=== PATIENT | male | born 1960 | race Caucasian/White ===

== ENCOUNTER 2017-08-19 03:49 | Emergency (ER) | payer MEDICAID ==
[2017-08-19 03:55] VITALS: RESP 18
[2017-08-19] MEDS ORDERED: SODIUM CHLORIDE 0.9% 1,000 ML IV STA (04:01)
[2017-08-19] MEDS ORDERED: ONDANSETRON 4 MG/2 ML VIAL IVP STA (04:01)
[2017-08-19] MEDS ORDERED: KETOROLAC 30 MG/ML 1 ML VIAL IVP STA (04:01)
--- NOTE | 2017-08-19 04:06 | ED ---
General Adult HPI - General Chief complaint: Abdominal Pain Stated complaint: kidney stone Time Seen by Provider: 08/19/17 03:50 Source: patient, RN notes reviewed Mode of arrival: ambulatory Limitations: no limitations - History of Present Illness Initial comments: This a 56-year-old male who presents emergency Department with a past medical history significant for kidney stones. Patient comes in today stating he believes he has another kidney stone. Patient states the pain is the left lower quadrant radiates down into his testicle. Patient denies any swelling of the testicle patient denies any tenderness to palpating the testicle. Patient denies any abdominal tenderness to palpation. Patient denies any fever chills per patient states he was nauseated earlier but did not vomit. Patient denies any diarrhea. Patient denies any dysuria hematuria. Patient states she's having a difficult time urinating at the present time. Patient denies any chest pain difficulty breathing [place] of breath. - Related Data Previous Rx's Medication Instructions Recorded Hydrocodone/Acetaminophen [Davison 1 each PO Q4HR PRN #20 tab 08/19/17 5-325] Ketorolac [Toradol] 10 mg PO Q6HR #15 tab 08/19/17 Tamsulosin HCl [Flomax] 0.4 mg PO DAILY #7 cap 08/19/17 Allergies Allergy/AdvReac Type Severity Reaction Status Date / Time No Known Allergies Allergy Verified 08/19/17 03:55 Review of Systems ROS Statement: Those systems with pertinent positive or pertinent negative responses have been documented in the HPI. ROS Other: All systems not noted in ROS Statement are negative. Past Medical History Past Medical History: Cancer Additional Past Medical History / Comment(s): HX BASAL CELL SKIN CA, KIDNEY STONES History of Any Multi-Drug Resistant Organisms: None Reported Additional Past Surgical History / Comment(s): BASAL CELL SKIN LESIONS REMOVED Past Anesthesia/Blood Transfusion Reactions: No Reported Reaction Past Psychological History: No Psychological Hx Reported Smoking Status: Never smoker Past Alcohol Use History: Rare Past Drug Use History: None Reported General Exam - General Exam Comments Initial Comments: GENERAL: Patient is well-developed and well-nourished. Patient is nontoxic and well- hydrated and is in moderate distress. ENT: Neck is soft and supple. No significant lymphadenopathy is noted. Oropharynx is clear. Moist mucous membranes. EYES: The sclera were anicteric and conjunctiva were pink and moist. Extraocular movements were intact and pupils were equal round and reactive to light. Eyelids were unremarkable. PULMONARY: Unlabored respirations. Good breath sounds bilaterally. No audible rales rhonchi or wheezing was noted. CARDIOVASCULAR: There is a regular rate and rhythm without any murmurs gallops or rubs. ABDOMEN: Soft and nontender with normal bowel sounds. No palpable organomegaly was noted. There is no palpable pulsatile mass. SKIN: Skin is clear with no lesions or rashes and otherwise unremarkable. NEUROLOGIC: Patient is alert and oriented x3. Cranial nerves II through XII are grossly intact. Motor and sensory are also intact. Normal speech, volume and content. Symmetrical smile. MUSCULOSKELETAL: Normal extremities with adequate strength and full range of motion. No lower extremity swelling or edema. No calf tenderness. LYMPHATICS: No significant lymphadenopathy is noted PSYCHIATRIC: Normal psychiatric evaluation. Normal interpersonal interactions appears functionally intact in deals appropriately with others. No signs of depression. No signs of anxiety. Limitations: no limitations Course Vital Signs 08/19/17 08/19/17 03:51 05:00 Temperature 98.2 F 98.5 F Pulse Rate 63 74 Respiratory 18 18 Rate Blood Pressure 120/82 111/61 O2 Sat by Pulse 99 98 Oximetry Medical Decision Making - Medical Decision Making CT [place] 4 mm stone on the left UVJ - Lab Data Result diagrams: 08/19/17 04:09 08/19/17 04:09 Lab Results 08/19/17 08/19/17 08/19/17 Range/Units 04:09 04:09 05:00 WBC 6.6 (3.8-10.6) k/uL RBC 5.19 (4.30-5.90) m/uL Hgb 14.6 (13.0-17.5) gm/dL Hct 42.6 (39.0-53.0) % MCV 82.1 (80.0-100.0) fL MCH 28.1 (25.0-35.0) pg MCHC 34.2 (31.0-37.0) g/dL RDW 14.1 (11.5-15.5) % Plt Count 208 (150-450) k/uL Neutrophils % 53 % Lymphocytes % 36 % Monocytes % 5 % Eosinophils % 3 % Basophils % 0 % Neutrophils # 3.5 (1.3-7.7) k/uL Lymphocytes # 2.4 (1.0-4.8) k/uL Monocytes # 0.4 (0-1.0) k/uL Eosinophils # 0.2 (0-0.7) k/uL Basophils # 0.0 (0-0.2) k/uL Sodium 141 (137-145) mmol/L Potassium 4.1 (3.5-5.1) mmol/L Chloride 104 (98-107) mmol/L Carbon Dioxide 27 (22-30) mmol/L Anion Gap 10 mmol/L BUN 18 (9-20) mg/dL Creatinine 1.50 H (0.66-1.25) mg/dL Est GFR (MDRD) Af Amer 58 (>60 ml/min/1.73 sqM) Est GFR (MDRD) Non-Af 48 (>60 ml/min/1.73 sqM) Glucose 129 H (74-99) mg/dL Calcium 9.6 (8.4-10.2) mg/dL Total Bilirubin 0.5 (0.2-1.3) mg/dL AST 26 (17-59) U/L ALT 42 (21-72) U/L Alkaline Phosphatase 41 (38-126) U/L Total Protein 6.4 (6.3-8.2) g/dL Albumin 3.9 (3.5-5.0) g/dL Amylase 61 (30-110) U/L Lipase 147 (23-300) U/L Urine Color Yellow Urine Appearance Clear (Clear) Urine pH 5.0 (5.0-8.0) Ur Specific [place] 1.025 (1.001-1.035) Urine Protein Trace H (Negative) Urine Glucose (UA) Negative (Negative) Urine Ketones 1+ H (Negative) Urine Blood Small H (Negative) Urine Nitrite Negative (Negative) Urine Bilirubin Negative (Negative) Urine Urobilinogen <2.0 (<2.0) mg/dL Ur Leukocyte Esterase Negative (Negative) Urine RBC 18 H (0-5) /hpf Urine WBC 1 (0-5) /hpf Ur Squamous Epith Cells <1 (0-4) /hpf Urine Mucus Many H (None) /hpf Disposition Clinical Impression: Kidney stone on left side Disposition: HOME SELF-CARE Condition: Good Prescriptions: Hydrocodone/Acetaminophen [Davison 5-325] 1 each PO Q4HR PRN #20 tab PRN Reason: Pain Ketorolac [Toradol] 10 mg PO Q6HR #15 tab Tamsulosin HCl [Flomax] 0.4 mg PO DAILY #7 cap Referrals: None,Stated [Primary Care Provider] - 1-2 days Time of Disposition: 05:27
[2017-08-19 04:22] LABS: Basophils % (A) 0 %; Eosinophils # (A) 0.2 k/uL (0-0.7); Eosinophils % (A) 3 %; HCT 42.6 % (39.0-53.0); HGB 14.6 gm/dL (13.0-17.5); Lymphocytes # (A) 2.4 k/uL (1.0-4.8); Lymphocytes % (A) 36 %; MCH 28.1 pg (25.0-35.0); MCHC 34.2 g/dL (31.0-37.0); MCV 82.1 fL (80.0-100.0); Mean Platelet Volume 7.5; Monocytes # (A) 0.4 k/uL (0-1.0); Monocytes % (A) 5 %; Neutrophils # (A) 3.5 k/uL (1.3-7.7); Neutrophils % (A) 53 %; Platelet Count 208 k/uL (150-450); RBC 5.19 m/uL (4.30-5.90); RDW 14.1 % (11.5-15.5); WBC 6.6 k/uL (3.8-10.6)
[2017-08-19 04:30] LABS: Albumin 3.9 g/dL (3.5-5.0); Calcium 9.6 mg/dL (8.4-10.2); Potassium 4.1 mmol/L (3.5-5.1); Total Bilirubin 0.5 mg/dL (0.2-1.3); Total Protein 6.4 g/dL (6.3-8.2)
--- NOTE | 2017-08-19 04:33 | XR ---
EXAM: XR Abdomen, 1 View CLINICAL HISTORY: Reason: abdominal pain TECHNIQUE: Frontal supine view of the abdomen/pelvis. COMPARISON: CT of the abdomen/pelvis performed the same day. FINDINGS: Gastrointestinal tract: Unremarkable. No dilation. Bones/joints: Unremarkable. IMPRESSION: Normal abdominal x-ray.
--- NOTE | 2017-08-19 05:07 | CT ---
EXAM: CT Abdomen and Pelvis Without Intravenous Contrast CLINICAL HISTORY: Left lower quadrant pain with testicular pain. TECHNIQUE: Axial computed tomography images of the abdomen and pelvis without intravenous contrast. DLP is 1007.40 mGy-cm. This CT exam was performed using one or more of the following dose reduction techniques: automated exposure control, adjustment of the mA and/or kV according to patient size, and/or use of iterative reconstruction technique. COMPARISON: None. FINDINGS: Lower thorax: Minimal bilateral dependent atelectasis. ABDOMEN: Liver: Unremarkable. Gallbladder and bile ducts: Unremarkable. No calcified stones. No ductal dilation. Pancreas: Unremarkable. No ductal dilation. Spleen: Unremarkable. No splenomegaly. Adrenals: Unremarkable. No mass. Kidneys and ureters: There is a 0.4 cm stone at the left UVJ resulting in mild left-sided hydronephrosis with associated perinephric fat stranding. Stomach and bowel: Colonic diverticulosis without evidence of acute diverticulitis. No obstruction. Appendix: No findings to suggest acute appendicitis. PELVIS: Bladder: Unremarkable. No stones. Reproductive: Unremarkable as visualized. ABDOMEN and PELVIS: Intraperitoneal space: Unremarkable. No free air. No significant fluid collection. Bones/joints: No acute fracture. No dislocation. Soft tissues: Small/moderate in size fat-containing umbilical hernia. Tiny fat-containing left inguinal hernia. Vasculature: Unremarkable. No abdominal aortic aneurysm. Lymph nodes: Unremarkable. No enlarged lymph nodes. IMPRESSION: A 0.4 cm stone at the left UVJ resulting in mild left-sided hydronephrosis with associated perinephric fat stranding.
[2017-08-19 05:14] VITALS: BP 111/61; PULSE 74; TEMP 98.5
[2017-08-19 05:20] LABS: Appearance,Urine Clear (Clear); Bilirubin,Urine Negative (Negative); Blood,Urine Small (Negative); Color,Urine Yellow; Glucose,Urine (UA) Negative (Negative); Ketones,Urine 1+ (Negative); Leukocyte Esterase,Urine Negative (Negative); Mucus,Urine Many /hpf; Nitrite,Urine Negative (Negative); Protein,Urine Trace (Negative); RBC,Urine 18 /hpf (0-5); Specific Gravity,Urine 1.025 (1.001-1.035); Squamous Epithelial Cell,Urine <1 /hpf (0-4); Urobilinogen,Urine <2.0 mg/dL (<2.0); WBC,Urine 1 /hpf (0-5)
== END 2017-08-19 05:51 | disposition home or self-care (01) ==
LOC: EC 03:49
DX: N20.0 Calculus of kidney (principal); Z85.828 Personal history of other malignant neoplasm of skin
CPT/HCPCS: 99284; 96374; 96375; 96361; 36415; 80053; 82150; 83690; 85025; 81001; 74018; 74176; J2405; J1885

== ENCOUNTER 2019-05-20 08:29 | Day surgery (SDC) | payer MEDICAID ==
[2019-05-18 10:19] VITALS: BMI 32.5
[~2019-05-20 08:29] MED LIST: DEXAMETHASONE SOD PHOSPHATE 4 MG/ML 1 ML VIAL IV ONE; FAMOTIDINE 20 MG/2 ML VIAL IV ONE; HYDROmorphone 0.5 MG/0.5 ML SYRINGE IVP PRN; LACTATED RINGERS 1,000 ML IV SCH; LIDOCAINE 1% 20 ML VIAL (10MG/ML) FOR IV START INTRADERMA PRN; MIDAZOLAM 2 MG/2 ML VIAL IV PRN; ONDANSETRON 4 MG/2 ML VIAL IVP ONE
[2019-05-20] MEDS: OXYMETAZOLINE 0.05% NASL SPRAY 1 SPRAY BOTTLE NASAL ONE ×4 (09:05→09:25)
[2019-05-20] MEDS ORDERED: DEXAMETHASONE SOD PHOS (MDV) 100 MG/10 ML VIAL IVP ONE (09:17)
[2019-05-20] MEDS ORDERED: ONDANSETRON 4 MG/2 ML VIAL IVP ONE (09:17)
[2019-05-20] MEDS ORDERED: PROPOFOL 10 MG/ML 20 ML VIAL IV ONE (09:56)
[2019-05-20] MEDS ORDERED: fentaNYL (PF) 50 MCG/ML 2 ML AMP ONE (09:56)
[2019-05-20] MEDS ORDERED: LIDOCAINE 1% INJ 10MG/ML (20 ML MDV) ONE (09:56)
[2019-05-20] MEDS ORDERED: MIDAZOLAM 2 MG/2 ML VIAL ONE (09:56)
[2019-05-20] MEDS ORDERED: PHENYLEPHRINE-0.9% NACL SYG 1 MG/10 ML SYRINGE ONE (09:56)
[2019-05-20] MEDS ORDERED: DEXAMETHASONE SOD PHOS (MDV) 100 MG/10 ML VIAL ONE (09:56)
[2019-05-20] MEDS ORDERED: SUCCINYLCHOLINE CHLORIDE VIAL 200 MG/10 ML VIAL IV ONE (09:56)
[2019-05-20] MEDS ORDERED: LIDOCAINE 1%-EPI 1:100,000 20 ML VIAL SQ ONE (10:14)
--- NOTE | 2019-05-20 10:52 | P.OP ---
Date of Procedure: 05/20/19 Preoperative Diagnosis: Deviated nasal septum Inferior turbinate hypertrophy Postoperative Diagnosis: Same Procedure(s) Performed: Septoplasty Outfracture and submucous resection inferior turbinates Anesthesia: DHAVALA Surgeon: Dawson Barrett Estimated Blood Loss (ml): 5 Pathology: other (Nasal septal bone and cartilage) Condition: stable Disposition: PACU Indications for Procedure: This is a 58-year-old white male who has difficulties with chronic left-sided nasal airway obstruction although also some nasal airway obstruction on the right Operative Findings: Nasal septum deviated left with inferior turbinate hypertrophy bilateral Description of Procedure: DESCRIPTION OF PROCEDURE: The patient was brought to the operative suite, placed in the supine position. The patient underwent induction of general anesthesia with oral endotracheal intubation without difficulty. The patient was prepped and draped in the usual aseptic fashion. 1% lidocaine with 1:100,000 epinephrine was infused submucosally on both sides of the nasal septum. While this was taking vasoconstrictive effect, the inferior turbinates were infractured with a Heard elevator. Partial submucous resection of the inferior turbinates was performed with Coblation device ablating a portion of the submucosal soft tissue. The inferior turbinates were then outfractured with a Heard elevator. A left hemitransfixion incision was then made through the mucoperichondrial. Mucoperiosteal flap on the left elevated. Bony cartilaginous junction was disarticulated and mucoperiosteal flap on the right was elevated. Bony nasoseptal deformity were removed with [place] forceps and an inferior cartilaginous strip was removed, leaving a full 1.5 cm caudal strut. Checking intranasally, this corrected the nasal septal deformities and the hemitransfixion incision was closed with running 4-0 chromic suture. The bilateral Jones airway splints coated in bacitracin ointment were placed in the nasal cavities and sutured transseptally with 4-0 nylon suture. The patient was then suctioned in an orogastric fashion. The patient was allowed to emerge from general anesthesia, having tolerated the procedure well and was extubated in the operating suite, transferred to postoperative recovery area in satisfactory condition.
[2019-05-20 11:07] VITALS: TEMP 97.8
[2019-05-20] MEDS ORDERED: HYDROcodone/APAP 5-325MG 1 EACH TAB PO ONE ×3 (13:41→14:06)
[2019-05-20 14:09] LABS: Basophils % (A) 0 %; Eosinophils % (A) 0 %; HCT 47.2 % (39.0-53.0); HGB 16.2 gm/dL (13.0-17.5); Lymphocytes # (A) 0.5 k/uL (1.0-4.8); Lymphocytes % (A) 5 %; MCH 29.6 pg (25.0-35.0); MCHC 34.3 g/dL (31.0-37.0); MCV 86.2 fL (80.0-100.0); Mean Platelet Volume 6.7; Monocytes # (A) 0.1 k/uL (0-1.0); Monocytes % (A) 1 %; Neutrophils # (A) 9.2 k/uL (1.3-7.7); Neutrophils % (A) 93 %; Platelet Count 214 k/uL (150-450); RBC 5.48 m/uL (4.30-5.90); RDW 12.7 % (11.5-15.5); WBC 9.9 k/uL (3.8-10.6)
[2019-05-20 14:26] LABS: Albumin 4.1 g/dL (3.5-5.0); Calcium 9.5 mg/dL (8.4-10.2); Potassium 4.5 mmol/L (3.5-5.1); Total Bilirubin 0.8 mg/dL (0.2-1.3)
[2019-05-20 14:28] VITALS: BP 128/83; PULSE 89; RESP 16
--- NOTE | 2019-05-20 14:34 | P.CRDCN ---
History of Present Illness History of present illness: This is a pleasant 58-year-old male with no significant past medical history who came in for elective septoplasty with Dr. Balbuena. On the plywood patcher was applied in the OR he was noted to be in atrial fibrillation with controlled ventricular rates. For this reason we have been requested to see the patient in the postoperative recovery room. He is seen and examined sitting up in bed with his at the bedside in no acute distress with cause in place on his. He denies any prior history of coronary artery disease, atrial fibrillation, hypertension or dyslipidemia. He denies ever feeling palpitations, dizziness, shortness of breath or fatigue. He states he is quite physically active with no restrictions. There is no old EKG in the system and in fact the patient doesn't follow regularly with her PCP. EKG was obtained and revealed atrial fibrillation with controlled ventricular response heart rate was [address] or T wave abnormalities noted. There is no preoperative labs to review. He takes no daily medications. At the time of my exam: CONSTITUTIONAL: Denies fever. Denies chills. EYES: Denies blurred vision. Denies vision changes. Denies eye pain. EARS, NOSE, MOUTH & THROAT: Denies headache. Denies sore throat. Denies ear pain. CARDIOVASCULAR: Denies chest pain. Denies shortness of breath. Denies orthopnea. Denies PND. Denies palpitations. RESPIRATORY: Denies cough. GASTROINTESTINAL: Denies abdominal pain. Denies diarrhea. Denies constipation. Denies nausea. Denies vomiting. MUSCULOSKELETAL: Denies myalgias. INTEGUMENTARY: Denies pruitis. Denies rash. NEUROLOGIC: Denies numbness. Denies tingling. Denies weakness. PSYCHIATRIC: Denies anxiety. Denies depression. ENDOCRINE: Denies fatigue. Denies weight change. Denies polydipsia. Denies polyurina. GENITOURINARY: Denies burning, hematuria or urgency with micturation. HEMATOLOGIC: Denies history of anemia. Denies bleeding. Blood pressure 120/83 heart rate 89 afebrile maintaining oxygen saturation on room air GENERAL: This is a 58-year-old male in no apparent distress at the time of my examination. HEENT: Head is atraumatic, normocephalic. Pupils are equal, round. Sclerae anicteric. Conjunctivae are clear. Mucous membranes of the mouth are moist. Neck is supple. There is no jugular venous distention. No carotid bruit is heard. LUNGS: Clear to auscultation no wheezes, rales or rhonchi. No chest wall tenderness is noted on palpation or with deep breathing. HEART: Irregular rate and rhythm without murmurs, rubs or gallops. S1 and S2 heard. ABDOMEN: Soft, nontender. Bowel sounds are heard. No organomegaly noted. EXTREMITIES: No evidence of peripheral edema and no calf tenderness noted. VASCULAR: Radial and dorsalis pedis pulses palpated, no evidence of clubbing. NEUROLOGIC: Patient is awake, alert and oriented x3. ASSESSMENT New onset atrial fibrillation with controlled ventricular response. PLAN Atrial fibrillation was noted ON telemetry tracings applied for septoplasty. Patient is maintaining a rate of approximately 70 bpm. He is asymptomatic. Rec ommend obtaining 2-D echocardiogram and Doppler study to assess cardiac structure and function. Will apply 24-hour Holter monitor to assess his ventricular response is as well as if he is going in and out of atrial fibrillation and sinus mechanism. Check electrolytes, TSH and CBC. At this point given the patient's age and no significant risk factors no anticoagulation is currently recommended. We have explained in great detail the risk of blood clot formation to the patient and his . No beta blockers at this time due to controlled rates. Recommend follow-up in the office next week. Thank you kindly for this consultation. Nurse Practitioner note has been reviewed, I agree with a documented findings and plan of care. Patient was seen and examined. Past Medical History Past Medical History: Cancer Additional Past Medical History / Comment(s): HX BASAL CELL SKIN CA, KIDNEY STONES History of Any Multi-Drug Resistant Organisms: None Reported Additional Past Surgical History / Comment(s): surgery as a baby for fontanel closing too soon, basal cell skin lesions removed several times Past Anesthesia/Blood Transfusion Reactions: No Reported Reaction Smoking Status: Never smoker Medications and Allergies Home Medications Medication Instructions Recorded Confirmed Type No Known Home Medications 05/18/19 05/18/19 History Allergies Allergy/AdvReac Type Severity Reaction Status Date / Time No Known Allergies Allergy Verified 05/18/19 10:17 Physical Exam Vitals: Vital Signs Temp Pulse Pulse Resp BP Pulse Ox 05/20/19 12:51 73 16 128/77 97 05/20/19 12:00 90 18 138/70 96 05/20/19 11:33 95 05/20/19 11:28 68 16 141/73 99 05/20/19 11:14 100 16 130/68 4 L 05/20/19 10:58 97.8 F 65 14 156/71 97 05/20/19 09:07 98.7 F 73 18 142/95 97 Intake and Output 05/19/19 05/20/19 05/20/19 22:59 06:59 14:59 Intake Total 1000 Output Total 20 Balance 980 Intake: IV 1000 Output: Estimated Blood Loss 20 Other: Weight 108.862 kg Results 05/20/19 13:51 Current Medications Generic Name Dose Route Start Last Admin Trade Name Freq PRN Reason Stop Dose Admin Hydromorphone HCl 0.5 mg 05/20/19 05:44 Dilaudid IVP 05/21/19 05:45 Q5M PRN Pain Control Lactated Ringer's 1,000 mls @ 20 mls/hr 05/20/19 05:44 05/20/19 09:14 Lactated Ringers IV 950 mls .Q24H ANGELA Administration Lidocaine HCl 0.1 ml 05/20/19 05:44 05/20/19 09:14 .Xylocaine 1% Inj (10mg/Ml) For Iv Start INTRADERMA 0.1 ml PER PROTOCOL PRN Administration IV Start Midazolam HCl 2 mg 05/20/19 05:44 Versed IV 05/21/19 05:45 ONCE PRN Anxiety Intake and Output 05/19/19 05/20/19 05/20/19 22:59 06:59 14:59 Intake Total 1000 Output Total 20 Balance 980 Intake: IV 1000 Output: Estimated Blood Loss 20 Other: Weight 108.862 kg Patient Weight 05/21/19 06:59 Weight 108.862 kg
--- NOTE | 2019-05-21 11:48 | ECHOF ---
Referral Reason:afib MEASUREMENTS -------- HEIGHT: 182.9 cm WEIGHT: 108.9 kg BP: 145/93 RVIDd: 3.5 cm (< 3.3) IVSd: 1.1 cm (0.6 - 1.1) LVIDd: 5.3 cm (3.9 - 5.3) LVPWd: 1.3 cm (0.6 - 1.1) IVSs: 1.6 cm LVIDs: 3.7 cm LVPWs: 1.7 cm LAESV Index (A-L): 31.88 ml/m Ao Diam: 3.3 cm (2.0 - 3.7) AV Cusp: 2.4 cm (1.5 - 2.6) MV EXCURSION: 27.766 mm (> 18.000) MV EF SLOPE: 129 mm/s (70 - 150) EPSS: 0.9 cm RAP: 5.00 mmHg RVSP: 33.58 mmHg FINDINGS -------- Atrial fibrillation. This was a technically good study. The left ventricular size is normal. There is mild concentric left ventricular hypertrophy. Overa ll left ventricular systolic function is mildly impaired with, an EF between 45 - 50 %. The right ventricle is mildly enlarged. LA is midly dilated 29-33ml/m2. The right atrium is normal in size. Interatrial and interventricular septum intact. There is mild aortic valve sclerosis. Mild mitral regurgitation is present. Mild tricuspid regurgitation present. There is borderline pulmonary hypertension. The right ventr icular systolic pressure, as measured by Doppler, is 33.58mmHg. There is no pulmonic regurgitation present. The aortic root size is normal. Normal inferior vena cava with normal inspiratory collapse consistent with estimated right atrial pre ssure of 5 mmHg. There is no pericardial effusion. CONCLUSIONS -------- 1. Atrial fibrillation. 2. This was a technically good study. 3. The left ventricular size is normal. 4. There is mild concentric left ventricular hypertrophy. 5. Overall left ventricular systolic function is mildly impaired with, an EF between 45 - 50 %. 6. The right ventricle is mildly enlarged. 7. LA is midly dilated 29-33ml/m2. 8. The right atrium is normal in size. 9. Interatrial and interventricular septum intact. 10. There is mild aortic valve sclerosis. 11. Mild mitral regurgitation is present. 12. Mild tricuspid regurgitation present. 13. There is borderline pulmonary hypertension. 14. The right ventricular systolic pressure, as measured by Doppler, is 33.58mmHg. 15. There is no pulmonic regurgitation present. 16. The aortic root size is normal. 17. Normal inferior vena cava with normal inspiratory collapse consistent with estimated right atrial pressure of 5 mmHg. 18. There is no pericardial effusion. LAP LAYER: [place] May RDCS
--- NOTE | 2019-05-28 10:25 | EST ---
EXERCISE STRESS 24 HOUR HOLTER REPORT: Patient in his diary did not indicate any symptoms. Predominant rhythm is atrial fib with variable rate that ranged from 58-159 beats per minute with average heart rate of 89 beats per minute. Rare isolated PVCs were noted. There was no evidence of any significant bradyarrhythmia. There was a lot of artifact. FINAL IMPRESSION: Predominant rhythm is atrial fib with variable rate and the average heart rate of 89 beats per minute. No symptoms were reported. Rare isolated premature ventricular contractions were noted. There was no evidence of any significant bradyarrhythmia. MMODL / IJN: [id number] /
== END 2019-05-20 14:52 | disposition home or self-care (01) ==
LOC: OR 08:29
PROVIDERS: ATTEND Otolaryngology
DX: J34.2 Deviated nasal septum (principal); J34.3 Hypertrophy of nasal turbinates; I48.91 Unspecified atrial fibrillation; R94.31 Abnormal electrocardiogram [ECG] [EKG]; I08.3 Combined rheumatic disorders of mitral, aortic and tricuspid valves; R94.39 Abnormal result of other cardiovascular function study; I27.20 Pulmonary hypertension, unspecified; Z85.828 Personal history of other malignant neoplasm of skin; Z87.442 Personal history of urinary calculi
CPT/HCPCS: 30520; 30140; 93225; 93226; 93306; 80053; 84443; 83735; 85025; 88300; J2250; J0330; J2405; J0690; J2001; J3010; J1100; J2370; J2704

== ENCOUNTER → 2019-06-18 | Outpatient (CLI) | payer MEDICAID ==
[2019-06-18 10:54] LABS: Potassium 4.9 mmol/L (3.5-5.1)
[2019-06-18 11:01] LABS: HCT 44.9 % (39.0-53.0); HGB 15.6 gm/dL (13.0-17.5); MCH 29.7 pg (25.0-35.0); MCHC 34.7 g/dL (31.0-37.0); MCV 85.4 fL (80.0-100.0); Mean Platelet Volume 6.6; Platelet Count 226 k/uL (150-450); RBC 5.26 m/uL (4.30-5.90); RDW 12.7 % (11.5-15.5); WBC 5.2 k/uL (3.8-10.6)
== END | disposition home or self-care (01) ==
LOC: LABPAT 10:07
PROVIDERS: ATTEND Internal Medicine Interventional Cardiology
DX: Z01.812 Encounter for preprocedural laboratory examination (principal); I48.0 Paroxysmal atrial fibrillation
CPT/HCPCS: 36415; 80051; 82565; 84520; 85027

== ENCOUNTER → 2019-06-23 | Day surgery (SDC) | payer MEDICAID ==
[2019-06-18 15:10] VITALS: BMI 32.5
[~2019-06-23] MED LIST changes: +BENZOCAINE SPRAY 1 CAN MUCOUS MEM ONE; +DEXAMETHASONE SOD PHOSPHATE 10 MG/ML 1 ML VIAL IV ONE; -DEXAMETHASONE SOD PHOSPHATE 4 MG/ML 1 ML VIAL IV ONE; -FAMOTIDINE 20 MG/2 ML VIAL IV ONE; -HYDROmorphone 0.5 MG/0.5 ML SYRINGE IVP PRN; -MIDAZOLAM 2 MG/2 ML VIAL IV PRN; -ONDANSETRON 4 MG/2 ML VIAL IVP ONE; +PROPOFOL 10 MG/ML 20 ML VIAL IV ONE; +SODIUM CHLORIDE 0.9% 1,000 ML IV SCH; +SODIUM CHLORIDE 0.9% 500 ML 500 ML IV ONE
[2019-06-23 06:50] VITALS: TEMP 98.1
[2019-06-23 08:14] VITALS: RESP 16
--- NOTE | 2019-06-23 09:10 | CE ---
CARDIAC ELECTROPHYSIOLOGY REPORT DATE OF SERVICE: June 23, 2019 PERFORMING PHYSICIAN: Jose F Reich MD. PROCEDURE PERFORMED: Cardioversion of atrial fibrillation. COMPLICATION: None. LEVEL OF SEDATION: The procedure was performed under general anesthesia using propofol. DESCRIPTION OF THE PROCEDURE: After left atrial appendage thrombus was ruled out, we did cardioversion of the patient of from atrial fibrillation to normal sinus mechanism using 300 joule on second attempt. CONCLUSION: Successful cardioversion of atrial fibrillation to normal sinus mechanism using 300 joule on second attempt. MMODL / IJN: [id number] /
--- NOTE | 2019-06-23 09:10 | ECHOT ---
TRANSESOPHAGEAL ECHOCARDIOGRAM DATE OF SERVICE: June 23, 2019 PERFORMING PHYSICIAN: Jose F Reich MD. PROCEDURE PERFORMED: Transesophageal echocardiogram. INDICATION: Rule out intracardiac thrombus before cardioversion. COMPLICATION: None. LEVEL OF SEDATION: Deep sedation was performed using propofol with WAREHOUSE MAN in the room. PROCEDURE DESCRIPTION: After obtaining an informed consent, the patient was brought to the transesophageal echocardiogram suite to recovery room. The patient was turned into left lateral position. The bite guard was placed. Subsequently and after induction of anesthesia, the transesophageal probe was advanced to the mid esophagus where 2D echocardiogram images, color Doppler images, and continuous-wave Doppler images were obtained from the transesophageal and transgastric views. The procedure was completed without any complication. FINDINGS: The left ventricular dimension and systolic function appeared to be within normal limits. The ejection fraction appeared to be in the range of 50%. Right ventricle appeared to be within normal limits for dimension. The left atrium appeared to be mildly dilated and right atrium is moderately dilated. The left atrial appendage appeared to be free from any thrombus. The interatrial septum appeared to be intact. The aortic valve is trileaflet valve without stenosis or regurgitation. The mitral valve seems to be mildly thickened with mild to moderate MR. Normal tricuspid valve and pulmonic valve. CONCLUSION: 1. Normal left atrial appendage without any evidence of thrombus. 2. Intact interatrial septum without any evidence of shunt. 3. Low normal left ventricular systolic function with ejection fraction of 50%. 4. Mild to moderate biatrial enlargement. 5. Trileaflet aortic valve without stenosis or regurgitation. 6. Thickened mitral valve leaflets with mild to moderate mitral regurgitation. 7. Mild tricuspid regurgitation. 8. No evidence of pericardial effusion. MMODL / IJN: [id number] /
[2019-06-23 09:35] VITALS: BP 121/80; PULSE 51
== END ==
LOC: CATHCVL 06:27
PROVIDERS: ATTEND Internal Medicine Interventional Cardiology
DX: I48.0 Paroxysmal atrial fibrillation (principal); I08.1 Rheumatic disorders of both mitral and tricuspid valves; Z85.828 Personal history of other malignant neoplasm of skin
CPT/HCPCS: 93312; 93320; 93325; 92960; J2704; 93005

== ENCOUNTER → 2019-08-11 | Outpatient (CLI) | payer SELFPAY ==
--- NOTE | 2019-08-11 11:58 | CT ---
EXAMINATION TYPE: CT heart w calcium score DATE OF EXAM: 08/11/2019 COMPARISON: None HISTORY: Screening for cardiovascular disorder. 213.9 CT DLP: 118.9 mGycm Automated exposure control for dose reduction was used. CT CALCIUM SCORING Coronary calcium is a marker for plaque (fatty deposits) in a blood vessel or atherosclerosis (harden ing of the arteries). The presence and amount of calcium detected in a coronary artery by the CT sca n, indicates the presence and amount of atherosclerotic plaque. These calcium deposits appear years before the development of heart disease symptoms such as chest pain and shortness of breath. A calcium score is computed for each of the coronary arteries based upon the volume and density of th e calcium deposits. This can be referred to as your calcified plaque burden. It does not correspond directly to the percentage of narrowing in the artery but does correlate with the severity of the un derlying coronary atherosclerosis. PROCEDURE TECHNIQUE - Prospective Gating was used. Slice thickness: 3mm. Density threshold (HU): 130, Pixel threshold: 3, Algorithm: discrete. RESULTS: Incidental note made of ascending aortic borderline aneurysm at 4.1 cm. Small hiatal hernia may be present. Region: LM Calcium Score (Agatston): 0 Volume (mm3): 0 Mass (g): 0 Region: RCA Calcium Score (Agatston): 2.1 Volume (mm3): 6.4 Region: LAD Calcium Score (Agatston): 0 Volume (mm3): 0 Mass (g): 0 Region: CX Calcium Score (Agatston): 0 Volume (mm3): 0 Mass (g): 0 Region: PDA Calcium Score (Agatston): 0 Volume (mm3): 0 Mass (g): 0 Total: Calcium Score (Agatston): 2.1 Volume (mm3): 6.4 TOTAL CALCIUM SCORE: 2.1 IMPRESSION: Calcium Score: 2.1 Implication: Minimal identifiable plaque. Risk of Coronary Artery Disease: Very low, generally less than 5%. Ascending aortic aneurysm is suspected CALCIUM SCORE IMPLICATION RISK OF C ORONARY ARTERY DISEASE 0 No identifiable plaque Very low, generally less than 5% 1-10 Minimal identifiable plaque Very unlikely, less than 10% 11-100 Definite, at least mild atherosclerotic plaque Mild or m inimal coronary narrowings likely 101-400 Definite, at least moderate atherosclerotic plaque Mild coronary ar viry disease highly likely, significant narrowing possible 401 or Higher Extensive atherosclerotic plaque High lik elihood of at least one significant coronary narrowing
== END | disposition home or self-care (01) ==
LOC: RADCTMAIN 08:39
PROVIDERS: ATTEND Internal Medicine Cardiovascular Disease
DX: I10 Essential (primary) hypertension (principal); E78.5 Hyperlipidemia, unspecified
CPT/HCPCS: 75571

== ENCOUNTER → 2020-10-06 | Outpatient (CLI) | payer MEDICAID ==
[2020-10-06 15:22] LABS: HCT 45.1 % (39.6-50.0); MCH 28.8 pg (27.0-32.0); MCHC 33.3 g/dL (32.0-37.0); MCV 86.7 fL (80.0-97.0); Mean Platelet Volume 10.2 fL (9.5-12.2); Platelet Count 212 X 10*3/uL (140-440); RDW 12.2 % (11.5-14.5); WBC 5.52 X 10*3/uL (4.50-10.00)
[2020-10-06 21:54] LABS: African American GFR (CKD) 68.3 (60.0-200.0); Albumin 4.3 g/dL (3.80-4.90); Albumin/Globulin Ratio 2.15 (1.60-3.17); Anion Gap 8.9 mmol/L (4.00-12.00); BUN/Creat Ratio 18.46 Ratio (12.00-20.00); Calcium 9.7 mg/dL (8.7-10.3); Carbon Dioxide 26.1 mmol/L (21.6-31.8); Chol/HDL Ratio 4.81; LDL Cholesterol,Calculated 128.6 mg/dL (0.0-131.0); Non-African American GFR(CKD) 58.9 (60.0-200.0); Potassium 4.9 mmol/L (3.5-5.5); Total Bilirubin 0.8 mg/dL (0.3-1.2); Total Protein 6.3 g/dL (6.2-8.2); VLDL Calculation 35.4 mg/dL (5.00-40.00)
== END | disposition home or self-care (01) ==
LOC: LABWHC1 08:06
PROVIDERS: ATTEND Internal Medicine Clinical Cardiac Electrophysiology
DX: I48.91 Unspecified atrial fibrillation (principal); N18.9 Chronic kidney disease, unspecified
CPT/HCPCS: 36415; 80053; 80061; 83036; 84443; 85027

== ENCOUNTER → 2020-10-20 | Outpatient (CLI) | payer MEDICAID ==
--- NOTE | 2020-10-21 11:00 | ECHOF ---
Referral Reason:I49.91 A fib MEASUREMENTS -------- HEIGHT: 182.9 cm WEIGHT: 108.9 kg BP: RVIDd: 3.6 cm (< 3.3) IVSd: 1.1 cm (0.6 - 1.1) LVIDd: 5.5 cm (3.9 - 5.3) LVPWd: 1.0 cm (0.6 - 1.1) IVSs: 1.6 cm LVIDs: 3.9 cm LVPWs: 1.4 cm LAESV Index (A-L): 41.92 ml/m Ao Diam: 3.1 cm (2.0 - 3.7) AV Cusp: 2.0 cm (1.5 - 2.6) LA Diam: 4.8 cm (2.7 - 3.8) MV EXCURSION: 27.387 mm (> 18.000) MV EF SLOPE: 129 mm/s (70 - 150) EPSS: 0.9 cm RAP: 5.00 mmHg RVSP: 38.73 mmHg FINDINGS -------- Atrial fibrillation. This was a technically adequate study. The left ventricular size is normal. Left ventricular wall thickness is normal. Overall left vent ricular systolic function is low-normal with, an EF between 50 - 55 %. Left ventricular fillimg pre ssure cannot be estimated due to Atrial fibrillation. The right ventricle is mildly enlarged. LA is moderately dilated 34-39 ml/m2 The right atrium is mildly enlarged. Interatrial and interventricular septum intact. The aortic valve is trileaflet and appears structurally normal. There is no evidence of aortic regu rgitation. There is no evidence of aortic stenosis. Mild mitral regurgitation is present. Fxsj-vt-[id number] tricuspid regurgitation present. There is mild pulmonary hypertension. The right ventricular systolic pressure, as measured by Doppler, is 38.73mmHg. There is no pulmonic regurgitation present. The aortic root size is normal. Normal inferior vena cava with normal inspiratory collapse consistent with estimated right atrial pre ssure of 5 mmHg. There is no pericardial effusion. CONCLUSIONS -------- 1. The left ventricular size is normal. 2. Left ventricular wall thickness is normal. 3. Overall left ventricular systolic function is low-normal with, an EF between 50 - 55 %. 4. The right ventricle is mildly enlarged. 5. LA is moderately dilated 34-39 ml/m2 6. The right atrium is mildly enlarged. 7. Mild mitral regurgitation is present. 8. Zuwh-mr-bbxmeklr tricuspid regurgitation present. 9. There is mild pulmonary hypertension. 10. The right ventricular systolic pressure, as measured by Doppler, is 38.73mmHg. ELECTRO MECHANICAL TECHNICIAN: Deandra Snell RDCS
== END | disposition home or self-care (01) ==
LOC: RADECHMAIN 11:40
PROVIDERS: ATTEND Internal Medicine Clinical Cardiac Electrophysiology
DX: I08.1 Rheumatic disorders of both mitral and tricuspid valves (principal); I27.20 Pulmonary hypertension, unspecified
CPT/HCPCS: 93225; 93226; 93306

== ENCOUNTER → 2020-11-08 | Outpatient (CLI) | payer MEDICAID ==
[2020-11-08 09:50] LABS: HCT 43.8 % (39.0-53.0); HGB 15.6 gm/dL (13.0-17.5); MCH 29.7 pg (25.0-35.0); MCHC 35.7 g/dL (31.0-37.0); MCV 83.2 fL (80.0-100.0); Mean Platelet Volume 7.2; Platelet Count 201 k/uL (150-450); RBC 5.26 m/uL (4.30-5.90); RDW 12.4 % (11.5-15.5); WBC 4.8 k/uL (3.8-10.6)
[2020-11-08 10:22] LABS: Potassium 4.6 mmol/L (3.5-5.1)
== END | disposition home or self-care (01) ==
LOC: LABPAT 09:09
PROVIDERS: ATTEND Internal Medicine Clinical Cardiac Electrophysiology
DX: Z01.818 Encounter for other preprocedural examination (principal); I48.19 Other persistent atrial fibrillation
CPT/HCPCS: 80051; 82565; 84520; 85027

== ENCOUNTER 2020-11-17 09:58 | Day surgery (SDC) | payer MEDICAID ==
[2020-11-16 10:29] VITALS: BMI 32.5
[~2020-11-17 09:58] MED LIST changes: -BENZOCAINE SPRAY 1 CAN MUCOUS MEM ONE; -DEXAMETHASONE SOD PHOSPHATE 10 MG/ML 1 ML VIAL IV ONE; -LIDOCAINE 1% 20 ML VIAL (10MG/ML) FOR IV START INTRADERMA PRN; -PROPOFOL 10 MG/ML 20 ML VIAL IV ONE; -SODIUM CHLORIDE 0.9% 500 ML 500 ML IV ONE
[2020-11-17 10:15] VITALS: TEMP 97.8
[2020-11-17] MEDS ORDERED: PROPOFOL 10 MG/ML 20 ML VIAL IV ONE (11:27)
[2020-11-17] MEDS ORDERED: LIDOCAINE 1% INJ 10MG/ML (20 ML MDV) ONE (11:27)
[2020-11-17 12:33] VITALS: PULSE 56; RESP 16
--- NOTE | 2020-11-17 12:36 | P.EPPROC ---
- EP Procedure Note Electrophysiology Procedure Note: Diagnosis Persistent symptom medications atrial fibrillation, failed prior treatment Procedure Electrical cardioversion for atrial fibrillation Postprocedure 12-lead EKG Details Under conscious sedation, 360 J biphasic shock in the AP configuration converted the patient to sinus rhythm Occasional PVCs, heart rate in the 50s Follow-up twelve-lead EKG showed sinus rhythm, mildly prolonged IA interval, narrow QRS abnormal ST segments, heart rates in the 60s Plan Discharge home today Follow up in 2 weeks 24 hour Holter monitor that they If heart rates at rest are in the 70s then I would increase the dose of flecainide to 100 mg twice daily Continue anticoagulation with ELIQUIS
[2020-11-17 12:49] VITALS: BP 110/78
== END 2020-11-17 13:09 | disposition home or self-care (01) ==
LOC: CATHEP 09:58
PROVIDERS: ATTEND Internal Medicine Clinical Cardiac Electrophysiology
DX: I48.19 Other persistent atrial fibrillation (principal); Z20.822 Contact with and (suspected) exposure to COVID-19; Z79.01 Long term (current) use of anticoagulants; Z79.899 Other long term (current) drug therapy
CPT/HCPCS: 92960; 87635; J2001; J2704

== ENCOUNTER → 2021-03-09 | Outpatient (CLI) | payer MEDICAID ==
[2021-03-09 07:20] LABS: HCT 45.2 % (39.0-53.0); HGB 15.6 gm/dL (13.0-17.5); MCH 29.6 pg (25.0-35.0); MCHC 34.4 g/dL (31.0-37.0); MCV 86.1 fL (80.0-100.0); Mean Platelet Volume 7.4; Platelet Count 210 k/uL (150-450); RBC 5.25 m/uL (4.30-5.90); RDW 12.7 % (11.5-15.5); WBC 6.1 k/uL (3.8-10.6)
[2021-03-09 07:31] LABS: Potassium 3.9 mmol/L (3.5-5.1)
== END | disposition home or self-care (01) ==
LOC: LABPAT 07:04
PROVIDERS: ATTEND Internal Medicine Clinical Cardiac Electrophysiology
DX: Z01.812 Encounter for preprocedural laboratory examination (principal); I48.19 Other persistent atrial fibrillation
CPT/HCPCS: 36415; 80051; 82565; 84520; 85027

== ENCOUNTER 2021-03-28 08:15 | Day surgery (SDC) | payer MEDICAID ==
[2021-03-24 16:09] VITALS: BMI 32.5
[2021-03-28] MEDS ORDERED: SODIUM CHLORIDE 0.9% 500 ML 500 ML IV ONE (08:26)
[2021-03-28 08:38] VITALS: RESP 16; TEMP 97.8
[2021-03-28] MEDS ORDERED: PROPOFOL 10 MG/ML 20 ML VIAL IV ONE (09:15)
[2021-03-28] MEDS ORDERED: LIDOCAINE 1% INJ 10MG/ML (20 ML MDV) ONE (09:15)
--- NOTE | 2021-03-28 10:07 | P.EPPROC ---
- EP Procedure Note Electrophysiology Procedure Note: Diagnosis Persistent symptomatic atrial fibrillation Failed flecainide 50 MG twice daily Brought in for electrical cardioversion on a higher dose of flecainide of 100 mg twice daily Procedure 200 J shock converted the patient is sinus rhythm the second attempt after repositioning the anterior patch Patient back in sinus rhythm Twelve-lead EKG shows sinus rhythm mildly prolonged OR interval narrow QRS normal ST segments absent QT interval less than 450 ms QRS width 98 ms OR interval 224 ms Plan Continue anticoagulation with ELIQUIS 5 g twice daily Continue flecainide 75 mg twice daily Proceed with AF ablation with pulmonary vein isolation/linear ablation in the septum
[2021-03-28 13:55] VITALS: BP 132/72; PULSE 60
== END 2021-03-28 10:35 | disposition home or self-care (01) ==
LOC: CATHEP 08:15
PROVIDERS: ATTEND Internal Medicine Clinical Cardiac Electrophysiology
DX: I48.19 Other persistent atrial fibrillation (principal); Z79.01 Long term (current) use of anticoagulants; Z79.899 Other long term (current) drug therapy
CPT/HCPCS: 92960

== ENCOUNTER → 2021-04-24 | Outpatient (CLI) | payer MEDICAID ==
[2021-04-24 09:57] LABS: HCT 42.5 % (39.0-53.0); HGB 14.7 gm/dL (13.0-17.5); MCH 29.6 pg (25.0-35.0); MCHC 34.5 g/dL (31.0-37.0); MCV 85.7 fL (80.0-100.0); Mean Platelet Volume 7.4; Platelet Count 183 k/uL (150-450); RBC 4.96 m/uL (4.30-5.90); RDW 12.2 % (11.5-15.5); WBC 5.3 k/uL (3.8-10.6)
[2021-04-24 10:07] LABS: Potassium 4.6 mmol/L (3.5-5.1)
== END | disposition home or self-care (01) ==
LOC: PAT 08:20
PROVIDERS: ATTEND Internal Medicine Clinical Cardiac Electrophysiology
DX: Z01.812 Encounter for preprocedural laboratory examination (principal); I48.19 Other persistent atrial fibrillation
CPT/HCPCS: 36415; 80051; 82565; 84520; 85027

== ENCOUNTER 2021-04-27 06:38 | Day surgery (SDC) | payer MEDICAID ==
[2021-04-25 13:15] VITALS: BMI 32.5
[~2021-04-27 06:38] MED LIST changes: -LACTATED RINGERS 1,000 ML IV SCH
[2021-04-27] MEDS ORDERED: SUCCINYLCHOLINE CHLORIDE VIAL 200 MG/10 ML VIAL IV ONE (08:42)
[2021-04-27] MEDS ORDERED: LIDOCAINE 1% INJ 10MG/ML (20 ML MDV) ONE ×2 (08:42→09:22)
[2021-04-27] MEDS ORDERED: GLYCOPYRROLATE 0.2 MG/ML 2 ML VIAL ONE (08:42)
[2021-04-27] MEDS ORDERED: fentaNYL (PF) 50 MCG/ML 2 ML AMP ONE (08:42)
[2021-04-27] MEDS ORDERED: PROPOFOL 10 MG/ML 20 ML VIAL IV ONE (08:42)
[2021-04-27] MEDS ORDERED: ISOPROTERENOL 250 MCG/1.25 ML SYR IV ONE (08:42)
[2021-04-27] MEDS ORDERED: ROCURONIUM 10 MG/ML (5 ML VIAL) IV ONE (08:42)
[2021-04-27] MEDS ORDERED: NEOSTIGMINE 1 MG/ML 10 ML VIAL ONE (08:42)
[2021-04-27] MEDS ORDERED: HYDROmorphone (PF) 1 MG/ML ONE (08:42)
[2021-04-27] MEDS ORDERED: HEPARIN SODIUM,PORCINE 10,000 UNIT/ML 1 ML VIAL ONE (08:42)
[2021-04-27] MEDS ORDERED: FUROSEMIDE 10 MG/ML 2 ML VIAL ONE (08:42)
[2021-04-27] MEDS ORDERED: MIDAZOLAM 2 MG/2 ML VIAL ONE (08:42)
[2021-04-27] MEDS ORDERED: HEPARIN SOD,PORK IN 0.45% NACL 25,000 UNIT in 0.45% NACL 1 250ML.BAG IV ONE (09:25)
[2021-04-27] MEDS ORDERED: LIDOCAINE 1% INJ 10MG/ML (20 ML MDV) SQ ONE (09:25)
[2021-04-27] MEDS ORDERED: HEPARIN SODIUM (1,000 UNIT/ML) 1,000 UNIT in SODIUM CHLORIDE 0.9% 1,000 ML IRRIGATION ONE (11:25)
[2021-04-27] MEDS ORDERED: IOPAMIDOL-370 100ML BTL INJ ONE (12:12)
--- NOTE | 2021-04-27 13:19 | P.EPPROC ---
- EP Procedure Note Electrophysiology Procedure Note: This is Dr. Earl dictating an H/P on this patient The patient was interviewed and examined IMPRESSION / ASSESSMENT: Persistent atrial fibrillation, symptomatic tiredness and fatigue This is despite being adequately rate controlled Failed flecainide 50 mg twice daily Shortness of breath with exertion History of cardio myopathy, mild Minimal coronary calcification, calcium score 2.1 Aortic aneurysm, approximately 4.1 cm PLAN: A. fib ablation Continue ELIQUIS HPI Patient was back in A. fib after cardioversion and 50 mg twice daily. He is quite symptomatic tired and fatigued short of breath with exertion Ever the dose was increased 100 mg twice daily and he was admitted once again He is in sinus rhythm He denies any chest discomfort dizziness lightheadedness to undue shortness of breath ROS: No fever chills or rigors, no cough, phlegm or expectoration, no nausea, vomiting or diarrhea, no hematuria, dysuria, no musculoskeletal complaints, no strokes or seizures, no skin lesions. EXAMINATION: Afebrile 90 symptomatically Fahrenheit pulse rate in the 50s blood pressure 142/79 mmHg pulse ox normal Lungs are clear no rhonchi no crackles No JVD no thyromegaly Heart sounds S1 and S2 are normal no murmurs or gallops or rub Abdomen soft nontender extremities are warm no edema REVIEW OF LABS, ECG & MEDICAL DATA Coronavirus negative Medications reviewed Patient is on ELIQUIS on flecainide Known drug ALLERGIES
[2021-04-27] MEDS ORDERED: ACETAMINOPHEN TAB 325 MG TAB PO PRN (13:20)
[2021-04-27] MEDS ORDERED: ACETAMINOPHEN IV (For NPO) 1,000 MG in EMPTY BAG 1 BAG IVPB ONE (13:20)
--- NOTE | 2021-04-27 13:44 | P.EPPROC ---
- EP Procedure Note Electrophysiology Procedure Note: PROCEDURE A. fib ablation DIAGNOSIS Atrial fibrillation, symptomatic, refractory to therapy Persistent RESULT No left atrial appendage mass seen on intracardiac echo Successful A. fib ablation/pulmonary vein isolation of all veins using cryo- ablation Complete entrance block in all 4 veins confirmed No evidence for phrenic nerve injury Linear ablation in the left atrial roof and the upper posterior wall of the left atrium Unit ablation of the posterior septum Focal ablation in the anterolateral right atrium below the SVC Esophageal deflection YES PROCEDURE DETAILS Patient was brought to the EP lab in a fasting state. Written informed consent was obtained prior to the procedure. Procedure performed under general anesthesia After initial muscle relaxant use, muscle relaxants were not given thereafter in order to assess phrenic nerve during procedure. Patient prepped and draped as per protocol Full cryo-set up with standard preparation of the cryoablation tools done. Femoral Venous access obtained on the right and left groins Venous and arterial Sheaths placed. Diagnostic catheters for the high right atrium, phrenic nerve stimulation and pacing, His bundle, RV and coronary sinus placed Intracardiac echo catheter placed. Long sheath placed in the right atrium Left and right transseptal catheterization performed under intracardiac echo guidance. Intravenous heparin with aCT above 300 Later, catheter positioning and balloon positioning in the left atrium, under i ntracardiac echo guidance Diagnostic EP study with Drug infusion Coronary sinus pacing and recording Baseline measurements Sinus cycle intermittent 25 ms, CA interval 180 ms QRS 104 ms and QT interval 377 ms AH interval 172 ms and HV interval 41 ms Atrial pacing performed from the high right atrium and the coronary sinus RV pacing Sinus recovery times a 605 100 ms were 14-1 and 1432. Corresponding corrected sinus node recovery times at the upper limits of normal AV node Wenckebach block on Isuprel 240 ms VA Wenckebach block on Isuprel greater than 450 ms Ur stimulation from the coronary sinus was performed from 2 sites from 400 ms down to 200 ms No atrial fibrillation induced at the end of the procedure Transseptal catheterization performed RA pressure 16/9/12 LA pressure 13/8/11 Transseptal catheterization performed with standard sheath. The cryoablation sheath was then placed with an over the wire exchange without any acute complications. All 4 pulmonary veins were isolated in the following sequence: Left superior followed by left inferior followed by right superior followed by right inferior The cryo-ablation balloon was placed at the os of each vein 1.5 mL of IV dye was injected to confirm an occluded vein Goal during cryoablation was to achieve complete occlusion of the pulmonary vein, achieve -30 degrees C at 30 seconds and achieve -40 degrees C at 60 seconds and a time to effect of less than 60-90 seconds, . If not the balloon was repositioned to obtain this result After completion of Cryoblation with durations from 180-240 seconds, entrance block was confirmed with the Attain circular catheter in a roving fashion around the antrum of the pulmonary veins Phrenic nerve pacing was performed from the SVC, right innominate vein area and diaphragm voltage was monitored. Diaphragmatic contractions were also monitored manually for strength of contraction. Parameter goals for each cryo freeze Complete occlusion of the appropriate vein -30 degrees C by 30 seconds -40 degrees C by 60 seconds Minimum between minus 40-55 degrees C Thaw time greater than 10 seconds Balloon visualized by intracardiac echo The esophagus was intubated. Esophageal Temperature monitoring with a CIRCA catheter formed. Esophageal deflection for hypothermia of the esophagus below 30 degrees C Left superior pulmonary vein Complete isolation, entrance block Left inferior pulmonary vein Complete isolation, entrance block Right superior pulmonary vein, during phrenic nerve pacing Complete isolation, entrance block Right inferior pulmonary vein, during phrenic nerve pacing Complete isolation, entrance block Cryoablation was performed along the roof in the upper posterior wall. Serial cryoablation was applied Later voltage mapping was performed and a complete zone of block noted in the upper posterior wall from the right to the left superior pulmonary veins At the end of the procedure the Achieve catheter was once again used to check for entrance block Phrenic nerve stimulation was performed to confirm diaphragmatic stimulation the end of the procedure Cine fluoroscopy was performed at the very end of the procedure to confirm movement of both diaphragms with inspiration and expiration Following this the RF catheter was placed with a new sheath in the left atrium 3-D and a metallic mapping was performed Voltage mapping was performed The pulmonary veins are completely isolated The roof in the left atrium was severely was completely isolated Very fractionated electrograms were noted in the posterior septum of the left atrium and the transseptal puncture RF ablation was performed along this The linear RF line was made from the roof down to the right inferior pulmonary vein, transecting these fractionated areas Thereafter on Isuprel and mechanical stimulation bursts of A. fib was induced from the lateral right atrium, just below the SVC These sites a on the 3-D mapping High output pacing was performed of the sites. The phrenic nerve could not restimulated at these sites or around An RF ablation was applied to the sites during phrenic nerve stimulation from the SVC Successful focal ablation was performed at this site At the end of the procedure the patient was extubated Heparin was reversed Venous sheaths were removed and hemostasis assured PROCEDURES PERFORMED Diagnostic EP study with attempted arrhythmia induction CS pacing and recording Left and right transseptal catheterization NOT 3D mapping) Intracardiac echocardiography Pulmonary vein isolation with transseptal and comprehensive EPS, [id number] Left atrial roof line, +[id number] Linear ablation, posterior septum all left atrium, +[id number] Focal ablation, upper lateral right atrial free wall just below SVC Drug Infusion [id number]
--- NOTE | 2021-04-27 13:50 | P.PRLE ---
RE: Lan Handy Dear MR Mr. Handy underwent successful A. fib ablation for management of refractory atrial fibrillation He tolerated the procedure very well I will continue flecainide for about 6 weeks and then discontinue it ELIQUIS of be continued Thank you for entrusting me with the care of the patient Warm regards Sincerely Gigi Earl
[2021-04-27] MEDS ORDERED: LACTATED RINGERS 1,000 ML IV ONE (14:09)
[2021-04-27] MEDS: APIXABAN 5 MG TAB PO SCH (20:10)
[2021-04-27] MEDS: FLECAINIDE 50 MG TAB PO SCH (20:11)
[2021-04-27 22:53] VITALS: RESP 16
[2021-04-28 08:31] VITALS: BP 124/70; PULSE 73; TEMP 97.9
[2021-04-28] MEDS: APIXABAN 5 MG TAB PO SCH (08:39)
[2021-04-28] MEDS: FLECAINIDE 50 MG TAB PO SCH (08:39)
--- NOTE | 2021-04-28 10:03 | DS ---
DISCHARGE SUMMARY Mr. Lan Handy has persistent symptomatic atrial fibrillation. Yesterday, he underwent an atrial fibrillation ablation involving pulmonary vein isolation with cryoablation, linear ablation along the roof and the upper posterior wall with cryoablation and linear ablation along the posterior septum along with fractionated electrograms. Thereafter on EP study on Isuprel, no atrial fibrillation could be induced despite the burst stimulation. Following that, when the catheters were positioned in the right atrium, there was a very localized area below the SVC posterolaterally where atrial fibrillation be induced briefly just by mere contact. This is a reproducible finding and was in a very localized area with somewhat fractionated electrograms. This area was mapped carefully. We ensured that the phrenic nerve was away from this area. RF ablation was performed during phrenic nerve pacing and this area was successfully ablated. Thereafter, he only had PACs with contact. He is doing well this morning. Heart sounds are normal. Breath sounds are clear. No JVD. His groins have healed well. I removed his dressings and the flow stasis. There is minimal tenderness. Abdomen is soft. No lower extremity edema. IMPRESSION: Persistent atrial fibrillation status post ablation as described above. PLAN: Continue low-dose flecainide at 50 mg twice daily. Continue Eliquis. The importance of continuing Eliquis and adequate hydration and ablation and the deep breathing exercises was emphasized. I will see him again about a week to 10 days. His 12-lead EKG shows sinus rhythm with a mildly prolonged QT interval and normal ST segments. MMODL / IJN: [id number] /
== END 2021-04-28 10:56 | disposition home or self-care (01) ==
LOC: CATHEP 06:38 → 6NMEDSUR 13:08 → CATHEP 04-28 10:56
PROVIDERS: ATTEND Internal Medicine Clinical Cardiac Electrophysiology
DX: I48.19 Other persistent atrial fibrillation (principal); I42.9 Cardiomyopathy, unspecified; I25.10 Atherosclerotic heart disease of native coronary artery without angina pectoris; Z20.822 Contact with and (suspected) exposure to COVID-19; I71.9 Aortic aneurysm of unspecified site, without rupture; Z79.01 Long term (current) use of anticoagulants; Z79.899 Other long term (current) drug therapy
CPT/HCPCS: 93623; 93662; 93613; 93656; 93657; 87635; C1894 ×2; C1769 ×4; C1760; C1730 ×2; C1759; C1893; C1733; C1766; C1732; J2001; J1644 ×2; J0131; Q9967

== ENCOUNTER → 2021-06-20 | Outpatient (CLI) | payer MEDICAID ==
[2021-06-20 11:44] LABS: HCT 41.7 % (39.0-53.0); HGB 14.7 gm/dL (13.0-17.5); MCH 29.4 pg (25.0-35.0); MCHC 35.3 g/dL (31.0-37.0); MCV 83.3 fL (80.0-100.0); Mean Platelet Volume 7.4; Platelet Count 210 k/uL (150-450); RDW 12.8 % (11.5-15.5); WBC 4.8 k/uL (3.8-10.6)
== END | disposition home or self-care (01) ==
LOC: LABPAT 09:47
PROVIDERS: ATTEND Internal Medicine Clinical Cardiac Electrophysiology
DX: Z01.812 Encounter for preprocedural laboratory examination (principal); I48.19 Other persistent atrial fibrillation
CPT/HCPCS: 80051; 82565; 84520; 85027; 36415; U0003; C9803

== ENCOUNTER 2021-06-29 09:50 | Day surgery (SDC) | payer MEDICAID ==
[2021-06-26 14:25] VITALS: BMI 32.5
[~2021-06-29 09:50] MED LIST changes: +LACTATED RINGERS 1,000 ML IV SCH
[2021-06-29] MEDS ORDERED: SODIUM CHLORIDE 0.9% 500 ML 500 ML IV ONE (10:34)
[2021-06-29 10:38] VITALS: RESP 16; TEMP 98.3
--- NOTE | 2021-06-29 12:44 | P.EPPROC ---
- EP Procedure Note Electrophysiology Procedure Note: Diagnosis Persistent atrial fibrillation despite cryoablation the pulmonary veins, symptomatic Procedure details Electrical cardioversion with a 200 J biphasic shock was unsuccessful Synchronized Electrical cardioversion performed with 400 J. Actual delivered energy was about 500 J Successful electrical cardioversion without any acute complications Plan Consideration for Multaq instead of flecainide since he has truly failed flecainide 100 mg twice daily Prior to his cryoablation 100 mg of twice daily flecainide converted into sinus rhythm Continue anticoagulation
[2021-06-29 17:18] VITALS: BP 122/81; PULSE 68
[2021-06-30] MEDS ORDERED: DRONEDARONE 400 MG TAB PO SCH (07:30)
== END 2021-06-29 13:51 | disposition home or self-care (01) ==
LOC: CATHEP 09:50
PROVIDERS: ATTEND Internal Medicine Clinical Cardiac Electrophysiology
DX: I48.19 Other persistent atrial fibrillation (principal); Z20.822 Contact with and (suspected) exposure to COVID-19; Z79.01 Long term (current) use of anticoagulants; E78.5 Hyperlipidemia, unspecified
CPT/HCPCS: 87635; 92960

== ENCOUNTER 2021-09-25 09:31 | Inpatient (IN) | payer MEDICAID ==
[2021-09-25 10:09] LABS: Basophils % (A) 0 %; Eosinophils # (A) 0.2 k/uL (0-0.7); Eosinophils % (A) 3 %; HCT 45.8 % (39.0-53.0); HGB 15.8 gm/dL (13.0-17.5); Lymphocytes # (A) 1.7 k/uL (1.0-4.8); Lymphocytes % (A) 30 %; MCH 29.6 pg (25.0-35.0); MCHC 34.5 g/dL (31.0-37.0); Mean Platelet Volume 7.3; Monocytes # (A) 0.4 k/uL (0-1.0); Monocytes % (A) 7 %; Neutrophils # (A) 3.3 k/uL (1.3-7.7); Neutrophils % (A) 58 %; Platelet Count 200 k/uL (150-450); RBC 5.33 m/uL (4.30-5.90); RDW 12.9 % (11.5-15.5); WBC 5.7 k/uL (3.8-10.6)
[2021-09-25 10:54] LABS: ALT 18 U/L (4-49); AST 29 U/L (17-59); African American GFR (CKD) 79 (>60 ml/min/1.73 sqM); Albumin 4.1 g/dL (3.5-5.0); Alkaline Phosphatase 36 U/L (38-126); Anion Gap 5 mmol/L; Blood Urea Nitrogen 23 mg/dL (9-20); Carbon Dioxide 28 mmol/L (22-30); Chloride 108 mmol/L (98-107); Glucose 89 mg/dL (74-99); Magnesium 2.1 mg/dL (1.6-2.3); Non-African American GFR(CKD) 68 (>60 ml/min/1.73 sqM); Potassium 4.6 mmol/L (3.5-5.1); Sodium 141 mmol/L (137-145); Total Bilirubin 0.8 mg/dL (0.2-1.3); Total Protein 6.8 g/dL (6.3-8.2)
[2021-09-25] MEDS ORDERED: MAGNESIUM SULFATE-D5W PMX 1 GM in DEXTROSE/WATER 1 100ML.BAG IVPB PRN (11:00)
[2021-09-25] MEDS: SPIRONOLACTONE 25 MG TAB PO SCH (11:45)
[2021-09-25] MEDS: APIXABAN 5 MG TAB PO SCH ×2 (11:45→20:34)
[2021-09-25] MEDS: MAGNESIUM OXIDE 400 MG TAB PO SCH (11:45)
[2021-09-25] MEDS ORDERED: DOFETILIDE 250 MCG CAP PO ONE (18:00)
--- NOTE | 2021-09-25 20:52 | P.PCN ---
Preoperative Diagnosis: This is Dr. Earl dictating a progress note on this patient The patient was interviewed and examined IMPRESSION / ASSESSMENT: Persistent atrial fibrillation, symptomatic Failed flecainide and Multaq PLAN: Proceed with dofetilide initiation as an inpatient Follow dofetilide protocol Continue ELIQUIS HPI Patient was admitted electively for management of atrial fibrillation that has failed flecainide, PVI and linear ablation in the left atrial roof and the septum as well as Multaq His symptoms of tiredness and fatigue and lack of energy ROS: No fever chills or rigors, no cough, phlegm or expectoration, no nausea, vomiting or diarrhea, no hematuria, dysuria, no musculoskeletal complaints, no strokes or seizures, no skin lesions. EXAMINATION: Afebrile, pulse rate in the 80s and 90s, blood pressure 119/86. His mercury Normal heart sounds irregular no murmurs Normal breath sounds Extremities warm no edema REVIEW OF LABS, ECG & MEDICAL DATA WHITE count 5.7, hemoglobin 15.8, platelet count 200,000 Sodium 141 potassium 4.6 BUN 23 and creatinine 1.2 Magnesium 2.1 TSH 2.3
[2021-09-26] MEDS ORDERED: DOFETILIDE 250 MCG CAP PO ONE ×2 (06:00→18:00)
[2021-09-26 06:55] LABS: Calcium 8.8 mg/dL (8.4-10.2)
[2021-09-26] MEDS ORDERED: SPIRONOLACTONE 25 MG TAB PO SCH (09:00)
[2021-09-26] MEDS ORDERED: MAGNESIUM OXIDE 400 MG TAB PO SCH (09:00)
[2021-09-26] MEDS: SPIRONOLACTONE 25 MG TAB PO SCH (10:48)
[2021-09-26] MEDS: MAGNESIUM OXIDE 400 MG TAB PO SCH (10:48)
[2021-09-26] MEDS: APIXABAN 5 MG TAB PO SCH ×2 (10:48→23:51)
--- NOTE | 2021-09-26 13:54 | P.PN ---
<Alanna Guillen - Last Filed: 09/26/21 13:50> Subjective Progress Note Date: 09/26/21 HISTORY OF PRESENT ILLNESS: This is a 61-year-old male who was admitted to the hospital for elective dofetilide initiation. Patient is on day # 2 of dofetilide. Patient denies any symptoms relating to the medication. EKG performed revealing atrial fibrillation with some organizational changes appearing. QTa around 380-400 this morning. Potassium today 4.0. Magnesium 2.0. B UN 19. Creatinine 1.12. PHYSICAL EXAM: VITAL SIGNS: Reviewed. GENERAL: Well-developed in no acute distress. NECK: Supple. No JVD or thyromegaly LUNGS: Respirations even and unlabored. Lungs essentially clear to auscultation bilaterally. HEART: Irregular rate and rhythm. S1 and S2 heard. EXTREMITIES: Normal range of motion. No clubbing or cyanosis. Peripheral pulses intact. No lower extremity edema ASSESSMENT: Persistent atrial fibrillation, symptomatic Failed flecainide and multaq History of previous ablations PLAN: Continue dofetilide protocol Give 250mcg at 1800 Daily BMP and magnesium levels NPO at midnight Plan for cardioversion tomorrow with Dr. Earl Nurse practitioner note has been reviewed by physician. Signing provider agrees with the documented findings, assessment, and plan of care. Objective - Vital Signs Vital signs: Vital Signs Temp 98.2 F 09/26/21 12:00 Pulse 68 09/26/21 12:00 Resp 18 09/26/21 12:00 BP 125/86 09/26/21 12:00 Pulse Ox 98 09/26/21 12:00 Intake & Output 09/25/21 09/26/21 09/26/21 18:59 06:59 18:59 Intake Total 540 Balance 540 Weight 108.912 kg 109.4 kg Intake: Oral 540 Other: Voiding Method Toilet Toilet # Voids 3 3 1 - Labs CBC & Chem 7: 09/25/21 09:57 09/26/21 06:11 Labs: Abnormal Lab Results - Last 24 Hours (Table) 09/26/21 Range/Units 06:11 Sodium 136 L (137-145) mmol/L <Gigi Earl - Last Filed: 09/26/21 14:06> Subjective Patient interviewed and examined by me. Data reviewed. Impression and plan formulated by me and discussed with nurse practitioner Nurse practitioner transcribed note on my behalf Objective - Vital Signs Vital signs: Vital Signs Temp 98.2 F 09/26/21 12:00 Pulse 68 09/26/21 12:00 Resp 18 09/26/21 12:00 BP 125/86 09/26/21 12:00 Pulse Ox 98 09/26/21 12:00 Intake & Output 09/25/21 09/26/21 09/26/21 18:59 06:59 18:59 Intake Total 540 Balance 540 Weight 108.912 kg 109.4 kg Intake: Oral 540 Other: Voiding Method Toilet Toilet # Voids 3 3 1 - Labs CBC & Chem 7: 09/25/21 09:57 09/26/21 06:11 Labs: Abnormal Lab Results - Last 24 Hours (Table) 09/26/21 Range/Units 06:11 Sodium 136 L (137-145) mmol/L
[2021-09-26] MEDS ORDERED: SODIUM CHLORIDE 0.9% 1,000 ML IV ONE (19:15)
[2021-09-27] MEDS ORDERED: DOFETILIDE 500 MCG CAP PO SCH (06:00)
[2021-09-27] MEDS: APIXABAN 5 MG TAB PO SCH ×2 (07:39→21:24)
[2021-09-27] MEDS: MAGNESIUM OXIDE 400 MG TAB PO SCH (07:39)
[2021-09-27 07:44] LABS: Calcium 9.2 mg/dL (8.4-10.2); Magnesium 2.2 mg/dL (1.6-2.3); Potassium 4.6 mmol/L (3.5-5.1)
[2021-09-27] MEDS ORDERED: PROPOFOL 10 MG/ML 20 ML VIAL IV ONE (10:01)
[2021-09-27] MEDS ORDERED: IV FLUID CONTINUATION 400 ML IV ONE (10:05)
--- NOTE | 2021-09-27 10:32 | P.EPPROC ---
- EP Procedure Note Electrophysiology Procedure Note: Diagnosis Persistent symptomatically atrial fibrillation Admitted for dofetilide initiation This morning he was given 500 g of dofetilide Procedure Successful electrical cardioversion to sinus rhythm with a 200 J biphasic shock in the AP configuration Postprocedure 12-lead EKG shows sinus rhythm with an absolute QT interval of less than 420 ms Plan Continue the higher dose of dofetilide of 500 g twice daily Daily BMP and mag
[2021-09-27] MEDS: SPIRONOLACTONE 25 MG TAB PO SCH (11:44)
[2021-09-27] MEDS ORDERED: DOFETILIDE 500 MCG CAP PO ONE (18:00)
[2021-09-28] MEDS ORDERED: DOFETILIDE 500 MCG CAP PO SCH (06:00)
[2021-09-28 07:40] LABS: Calcium 9.2 mg/dL (8.4-10.2); Magnesium 2.1 mg/dL (1.6-2.3); Potassium 4.2 mmol/L (3.5-5.1)
[2021-09-28] MEDS: MAGNESIUM OXIDE 400 MG TAB PO SCH (08:33)
[2021-09-28] MEDS: APIXABAN 5 MG TAB PO SCH ×2 (08:33→20:41)
[2021-09-28] MEDS: SPIRONOLACTONE 25 MG TAB PO SCH (08:33)
--- NOTE | 2021-09-28 12:13 | P.PN ---
Subjective Progress Note Date: 09/28/21 HISTORY OF PRESENT ILLNESS: This is a 61-year-old male who was admitted to the hospital for elective dofetilide initiation. Patient is on day # 2 of dofetilide. Patient denies any symptoms relating to the medication. EKG performed revealing atrial fibrillation with some organizational changes appearing. QTa around 380-400 this morning. Potassium today 4.0. Magnesium 2.0. B UN 19. Creatinine 1.12. 09/28/2021 Patient examined this morning at the bedside. Patient underwent cardioversion yesterday. Patient is maintaining sinus mechanism this morning. QT less than 460 this morning. Vital signs are stable. PHYSICAL EXAM: VITAL SIGNS: Reviewed. GENERAL: Well-developed in no acute distress. NECK: Supple. No JVD or thyromegaly LUNGS: Respirations even and unlabored. Lungs essentially clear to auscultation bilaterally. HEART: Regular rate and rhythm. S1 and S2 heard. EXTREMITIES: Normal range of motion. No clubbing or cyanosis. Peripheral pulses intact. No lower extremity edema ASSESSMENT: Persistent atrial fibrillation, symptomatic Failed flecainide and multaq History of previous ablations PLAN: Continue dofetilide protocol Give 500mcg at 1800 Daily BMP and magnesium levels Further recommendations pending patient's course Nurse practitioner note has been reviewed by physician. Signing provider agrees with the documented findings, assessment, and plan of care. Objective - Vital Signs Vital signs: Vital Signs Temp 96.8 F L 09/28/21 08:30 Pulse 63 09/28/21 11:31 Resp 16 09/28/21 11:31 BP 140/76 09/28/21 11:31 Pulse Ox 99 09/28/21 11:31 Intake & Output 09/27/21 09/28/21 09/28/21 18:59 06:59 18:59 Intake Total 20 160 Balance 20 160 Intake: IV 20 Oral 160 Other: Voiding Method Toilet Toilet Toilet # Voids 3 - Labs CBC & Chem 7: 09/25/21 09:57 09/28/21 06:48 Labs: Abnormal Lab Results - Last 24 Hours (Table) 09/28/21 Range/Units 06:48 BUN 24 H (9-20) mg/dL
[2021-09-28] MEDS ORDERED: DOFETILIDE 500 MCG CAP PO ONE (18:00)
[2021-09-29 00:20] VITALS: RESP 16
[2021-09-29] MEDS ORDERED: DOFETILIDE 500 MCG CAP PO ONE (06:00)
[2021-09-29 07:55] VITALS: TEMP 97
[2021-09-29 07:58] LABS: Potassium 4.3 mmol/L (3.5-5.1)
[2021-09-29] MEDS: MAGNESIUM OXIDE 400 MG TAB PO SCH (08:28)
[2021-09-29] MEDS: SPIRONOLACTONE 25 MG TAB PO SCH (08:28)
[2021-09-29] MEDS: APIXABAN 5 MG TAB PO SCH (08:28)
[2021-09-29] MEDS ORDERED: SODIUM CHLORIDE 0.9% 500 ML 500 ML IV ONE (08:56)
[2021-09-29] MEDS ORDERED: SPIRONOLACTONE 25 MG TAB PO SCH (09:00)
--- NOTE | 2021-09-29 11:06 | P.DS ---
Providers Date of admission: 09/25/21 09:31 Attending physician: Gigi Earl Primary care physician: Stated None Hospital Course: Patient is doing well. No chest discomfort dizziness lightheadedness Today's BUN and creatinine is a bit up and I gave him IV fluids 500 mL 1 He is asymptomatic His absolute QT interval yesterday and today are between 440 and 480 ms on dofetilide 500 g twice daily On examination blood pressure 120/80 mmHg pulse rate in the 60s afebrile Breath sounds are clear no rhonchi no crackles Heart sounds are normal. I had a very detailed discussion regarding dose and told to dofetilide A full dofetilide education was provided The risk of worsening renal function, drug interactions especially with [id number] and herbal medications and all details are outlined in the education packet were discussed Specifically I asked him to abstain from [id number] herbal medications and the supplements that he uses since these are not tested with dofetilide with regards to QT prolongation He will continue anticoagulation I don't think he needs spironolactone He will continue oral magnesium mag oxide 400 mg by mouth daily Adequate hydration His prescriptions have been given and sent I will see him next week for twelve-lead EKG in a QT check A follow-up Holter monitor will be ordered next week Plan - Discharge Summary Discharge Rx Participant: No New Discharge Prescriptions: No Action RX: Apixaban [Eliquis] 5 mg PO BID Discharge Medication List RX: Apixaban [Eliquis] 5 mg PO BID 06/18/19 [History]
[2021-09-29 11:41] VITALS: BP 118/75; PULSE 60
== END 2021-09-29 12:46 | disposition home or self-care (01) | DRG 310 ==
LOC: 3SCARD 09:31
PROVIDERS: ADMIT Internal Medicine Clinical Cardiac Electrophysiology; ATTEND Internal Medicine Clinical Cardiac Electrophysiology
PROC: XW0 New Technology, Anatomical Regions, Introduction (ICD-10-PCS; principal; 2021-09-25)
PROC: 5A2204Z Restoration of Cardiac Rhythm, Single (ICD-10-PCS; 2021-09-27)
DX: I48.19 Other persistent atrial fibrillation (principal); I08.1 Rheumatic disorders of both mitral and tricuspid valves; Z79.01 Long term (current) use of anticoagulants; Z79.899 Other long term (current) drug therapy
CPT/HCPCS: 80048; 80053; 83735; 84443; 85025; 92960

== ENCOUNTER 2021-11-22 10:14 | Day surgery (SDC) | payer MEDICAID ==
[2021-11-21 08:52] VITALS: BMI 32.5
[~2021-11-22 10:14] MED LIST changes: +DEXAMETHASONE SOD PHOSPHATE 4 MG/ML 1 ML VIAL IV PRN; +FAMOTIDINE 20 MG/2 ML VIAL IV PRN; +ONDANSETRON 4 MG/2 ML VIAL IVP PRN; +OXYMETAZOLINE 0.05% NASL SPRAY 1 SPRAY BOTTLE EA NOSTRIL PRN; -SODIUM CHLORIDE 0.9% 1,000 ML IV SCH
[2021-11-22] MEDS ORDERED: fentaNYL (PF) 50 MCG/ML 2 ML AMP ONE (12:59)
[2021-11-22] MEDS ORDERED: SUCCINYLCHOLINE CHLORIDE 100 MG/5 ML SYR IV ONE (12:59)
[2021-11-22] MEDS ORDERED: PROPOFOL 10 MG/ML 20 ML VIAL IV ONE (12:59)
[2021-11-22] MEDS ORDERED: MIDAZOLAM 2 MG/2 ML VIAL ONE (12:59)
[2021-11-22] MEDS ORDERED: LIDOCAINE 2% INJ 20 MG/ML (2 ML VIAL) ONE (12:59)
[2021-11-22] MEDS ORDERED: LIDOCAINE 1%-EPI 1:100,000 20 ML VIAL SUBMUCOSAL ONE (13:14)
[2021-11-22] MEDS ORDERED: BACITRACIN ZINC 500 UNIT/GM OINT 28.4 GM TUBE TOPICAL ONE (13:20)
--- NOTE | 2021-11-22 13:48 | P.OP ---
Date of Procedure: 11/22/21 Preoperative Diagnosis: Deviated nasal septum Postoperative Diagnosis: Same Procedure(s) Performed: Revision septoplasty Anesthesia: TERELL Surgeon: Dawson Barrett Estimated Blood Loss (ml): 2 Pathology: other (Nasal septal cartilage) Condition: stable Disposition: PACU Indications for Procedure: This 59 white male who previously septoplasty. He improved but still has had difficulties nasal airway obstruction on the left anteriorly Operative Findings: Residual quadrangular cartilage which is deviated to the left Description of Procedure: Patient brought in the operative suite and placed in a supine position. Patient underwent induction of general anesthesia with oral endotracheal intubation without difficulty. The patient was prepped and draped in usual aseptic fashion. 1% lidocaine with 1 100,000 epinephrine was infused submucosally both sides nasal septum. This was left to work for 7 minutes vasoconstrictive effect. A left hemitransfixion incision was made with the mucoperichondrial flap on the left elevated. A vertical strip of quadrangular cartilage posteriorly was excised. This appeared to resolve the deviation and obstruction on the left . A full 1.5 cm caudal strut was left in place. The hemitra nsfixion incision was closed with a running 4-0 chromic suture. Nasoseptal splints were placed and sutured trans-septally with a 4-0 nylon suture. The patient was suctioned in oral gastric fashion and was allowed to emerge from general anesthesia having tolerated procedure well was extubated in the operating suite and transferred to the postop recovery area in satisfactory condition.
[2021-11-22 13:57] VITALS: TEMP 96.8
[2021-11-22 14:39] VITALS: RESP 18
[2021-11-22 15:13] VITALS: BP 123/84; PULSE 62
== END 2021-11-22 15:25 | disposition home or self-care (01) ==
LOC: OR 10:14
PROVIDERS: ATTEND Otolaryngology
DX: J34.2 Deviated nasal septum (principal); I48.91 Unspecified atrial fibrillation; Z79.01 Long term (current) use of anticoagulants; Z79.899 Other long term (current) drug therapy
CPT/HCPCS: 30520; 88300; J2250; J1100; J0690; J2405; J3010; J0330; J2704; J2001

== ENCOUNTER → 2022-02-12 | Outpatient (CLI) | payer MEDICAID ==
[2022-02-12 11:25] LABS: African American GFR (CKD) 93.1 (60.0-200.0); Anion Gap 12.1 mmol/L (10.00-18.00); BUN/Creat Ratio 19.7 Ratio (12.00-20.00); Blood Urea Nitrogen 19.7 mg/dL (9.0-27.0); Calcium 8.8 mg/dL (8.7-10.3); Carbon Dioxide 22.6 mmol/L (20.0-27.5); Non-African American GFR(CKD) 80.3 (60.0-200.0); Potassium 3.8 mmol/L (3.5-5.5)
== END | disposition home or self-care (01) ==
LOC: LABWHC1 06:59
PROVIDERS: ATTEND Internal Medicine Interventional Cardiology
DX: I48.19 Other persistent atrial fibrillation (principal)
CPT/HCPCS: 36415; 80048; 83735

== ENCOUNTER → 2022-08-16 | Outpatient (CLI) | payer MEDICAID ==
[2022-08-16 16:12] LABS: African American GFR (CKD) 62.5 (60.0-200.0); Anion Gap 10.5 mmol/L (10.00-18.00); BUN/Creat Ratio 12.59 Ratio (12.00-20.00); Blood Urea Nitrogen 17.5 mg/dL (9.0-27.0); Calcium 9.6 mg/dL (8.7-10.3); Carbon Dioxide 24.4 mmol/L (20.0-27.5); Magnesium 2.2 mg/dL (1.5-2.4); Non-African American GFR(CKD) 53.9 (60.0-200.0); Potassium 4.3 mmol/L (3.5-5.5)
== END | disposition home or self-care (01) ==
LOC: LABWHC1 07:11
PROVIDERS: ATTEND Internal Medicine Clinical Cardiac Electrophysiology
DX: I48.91 Unspecified atrial fibrillation (principal); Z79.899 Other long term (current) drug therapy
CPT/HCPCS: 36415; 80048; 83735

== ENCOUNTER → 2022-08-23 | Outpatient (CLI) | payer MEDICAID ==
[2022-08-23 19:41] LABS: African American GFR (CKD) 67.8 (60.0-200.0); Anion Gap 8.5 mmol/L (10.00-18.00); BUN/Creat Ratio 14.54 Ratio (12.00-20.00); Blood Urea Nitrogen 18.9 mg/dL (9.0-27.0); Calcium 9.6 mg/dL (8.7-10.3); Carbon Dioxide 27.5 mmol/L (20.0-27.5); Magnesium 1.9 mg/dL (1.5-2.4); Non-African American GFR(CKD) 58.5 (60.0-200.0); Potassium 4.2 mmol/L (3.5-5.5)
== END | disposition home or self-care (01) ==
LOC: LABWHC1 12:49
PROVIDERS: ATTEND Internal Medicine Interventional Cardiology
DX: Z51.81 Encounter for therapeutic drug level monitoring (principal); I48.19 Other persistent atrial fibrillation
CPT/HCPCS: 36415; 80048; 83735

== ENCOUNTER → 2023-01-28 | Outpatient (CLI) | payer MEDICAID ==
[2023-01-28 21:04] LABS: BUN/Creat Ratio 20.92 Ratio (12.00-20.00); Blood Urea Nitrogen 25.1 mg/dL (9.0-27.0); Calcium 9.6 mg/dL (8.7-10.3); Chloride 108 mmol/L (96-109); Glucose 84 mg/dL (70-110); Magnesium 2.1 mg/dL (1.5-2.4); Potassium 4.8 mmol/L (3.5-5.5); Sodium 144 mmol/L (135-145)
== END | disposition home or self-care (01) ==
LOC: LABWHC1 12:13
PROVIDERS: ATTEND Internal Medicine Clinical Cardiac Electrophysiology
DX: I48.91 Unspecified atrial fibrillation (principal); Z79.899 Other long term (current) drug therapy
CPT/HCPCS: 36415; 80048; 83735

== ENCOUNTER 2023-08-06 04:13 | Emergency (ER) | payer MEDICAID ==
[2023-08-06 04:31] VITALS: TEMP 97.6
[2023-08-06] MEDS ORDERED: HYDROmorphone 1 MG/ML 1 ML SYRINGE IVP STA (05:08)
[2023-08-06] MEDS ORDERED: KETOROLAC 15 MG/ML 1 ML VIAL IVP STA (05:08)
[2023-08-06 05:09] LABS: Basophils % (A) 0 %; Eosinophils # (A) 0.3 k/uL (0-0.7); Eosinophils % (A) 6 %; HCT 43.4 % (39.0-53.0); HGB 15.1 gm/dL (13.0-17.5); Lymphocytes # (A) 2.2 k/uL (1.0-4.8); Lymphocytes % (A) 41 %; MCH 28.3 pg (25.0-35.0); MCHC 34.7 g/dL (31.0-37.0); MCV 81.6 fL (80.0-100.0); Mean Platelet Volume 7.5; Monocytes # (A) 0.4 k/uL (0-1.0); Monocytes % (A) 8 %; Neutrophils # (A) 2.3 k/uL (1.3-7.7); Neutrophils % (A) 43 %; Platelet Count 197 k/uL (150-450); RBC 5.32 m/uL (4.30-5.90); RDW 12.5 % (11.5-15.5); WBC 5.3 k/uL (3.8-10.6)
[2023-08-06 05:20] LABS: ALT 21 U/L (4-49); AST 32 U/L (17-59); African American GFR (CKD) 78 (>60 ml/min/1.73 sqM); Albumin 4.2 g/dL (3.5-5.0); Alkaline Phosphatase 43 U/L (38-126); Amylase 69 U/L (30-110); Anion Gap 12 mmol/L; Blood Urea Nitrogen 15 mg/dL (9-20); C Reactive Protein 0.6 mg/dL (<1.0); Calcium 9.3 mg/dL (8.4-10.2); Carbon Dioxide 20 mmol/L (22-30); Chloride 105 mmol/L (98-107); Glucose 97 mg/dL (74-99); Lipase 113 U/L (23-300); Non-African American GFR(CKD) 68 (>60 ml/min/1.73 sqM); Potassium 4.1 mmol/L (3.5-5.1); Sodium 137 mmol/L (137-145); Total Bilirubin 0.8 mg/dL (0.2-1.3); Total Protein 6.8 g/dL (6.3-8.2)
--- NOTE | 2023-08-06 06:01 | ED ---
Abdominal Pain HPI - General Chief Complaint: Abdominal Pain Stated Complaint: Kidney stone Time Seen by Provider: 08/06/23 04:42 Source: patient Mode of arrival: ambulatory Limitations: no limitations - History of Present Illness MD Complaint: flank pain -: hour(s) Location: LLQ, L flank Radiation: other (scrotum) Migration to: no migration Severity: severe Quality: sharp Consistency: constant Improves With: nothing Worsens With: nothing Associated Symptoms: denies other symptoms - Related Data Home Medications Medication Instructions Recorded Confirmed Apixaban [Eliquis] 5 mg PO BID 06/18/19 11/21/21 Previous Rx's Medication Instructions Recorded Dofetilide [Tikosyn] 500 mcg PO Q12HR #180 cap 09/29/21 Magnesium Oxide 400 mg PO DAILY #90 tablet 09/29/21 HYDROcodone/APAP 5-325MG [[place] 1 tab PO Q4HR PRN 3 Days #18 tab 08/06/23 5-325] Ondansetron Odt [Zofran ODT] 4 mg PO Q8HR PRN #10 tab 08/06/23 Tamsulosin [Flomax] 0.4 mg PO DAILY #14 cap 08/06/23 Allergies Allergy/AdvReac Type Severity Reaction Status Date / Time No Known Allergies Allergy Verified 08/06/23 04:24 Review of Systems ROS Statement: Those systems with pertinent positive or pertinent negative responses have been documented in the HPI. ROS Other: All systems not noted in ROS Statement are negative. Constitutional: Denies: fever, chills, weakness Respiratory: Denies: cough, dyspnea Cardiovascular: Denies: chest pain, palpitations, edema Gastrointestinal: Reports: as per HPI, abdominal pain (Flank pain). Denies: vomiting, diarrhea, melena, hematochezia Genitourinary: Reports: frequency, testicular pain. Denies: dysuria, hematuria, testicular mass Musculoskeletal: Denies: back pain Skin: Denies: rash Neurological: Denies: headache, weakness Past Medical History Past Medical History: Atrial Fibrillation, Cancer Additional Past Medical History / Comment(s): HX BASAL CELL SKIN CA, KIDNEY STONES History of Any Multi-Drug Resistant Organisms: None Reported Past Surgical History: Cardiac Ablation Additional Past Surgical History / Comment(s): Cardioversion X3, surgery as a baby for fontanel closing too soon, basal cell skin lesions removed several times,ESTEFANIA,septoplasty. Past Anesthesia/Blood Transfusion Reactions: No Reported Reaction Past Psychological History: No Psychological Hx Reported Smoking Status: Never smoker Past Alcohol Use History: None Reported Past Drug Use History: None Reported - Past Family History Mother Family Medical History: No Reported History General Exam Limitations: no limitations General appearance: alert, in no apparent distress Head exam: Present: atraumatic, normocephalic Eye exam: Present: normal appearance. Absent: scleral icterus, conjunctival i njection ENT exam: Present: normal oropharynx Neck exam: Present: normal inspection Respiratory exam: Present: normal lung sounds bilaterally. Absent: respiratory distress, wheezes, rales, rhonchi, stridor Cardiovascular Exam: Present: regular rate, normal rhythm, normal heart sounds. Absent: systolic murmur, diastolic murmur, rubs, gallop GI/Abdominal exam: Present: soft. Absent: distended, tenderness, guarding, rebound, rigid, mass Extremities exam: Present: normal inspection, normal capillary refill. Absent: pedal edema, calf tenderness Back exam: Present: normal inspection, CVA tenderness (L). Absent: CVA ten derness (R), vertebral tenderness Neurological exam: Present: alert Skin exam: Present: warm, dry, intact, normal color. Absent: rash Course Vital Signs 08/06/23 08/06/23 04:21 08:57 Temperature 97.6 F 97.6 F Pulse Rate 63 58 L Respiratory 18 16 Rate Blood Pressure 147/88 123/74 O2 Sat by Pulse 98 97 Oximetry Medical Decision Making - Medical Decision Making The patient had computed tomography scan of the abdomen interpreted as showing small left sided ureteral stone with hydronephrosis. Was pt. sent in by a medical professional or institution (, PA, LEVEL VIAL CURVATURE GAUGER, urgent care, hospital, or [facility]...) When possible be specific @ -[No] Did you speak to anyone other than the patient for history (EMS, parent, family, police, friend...)? What history was obtained from this source @ -[No] Did you review nursing and triage notes (agree or disagree)? Why? @ -[I reviewed and agree with nursing and triage notes] Were old charts reviewed (outside hosp., previous admission, EMS record, old EKG, old radiological studies, urgent care reports/EKG's, [facility] records)? Report findings @ -[No old charts were reviewed] Differential Diagnosis (chest pain, altered mental status, abdominal pain women, abdominal pain men, vaginal bleeding, weakness, fever, dyspnea, syncope, headache, dizziness, GI bleed, back pain, seizure, CVA, palpatations, mental health, musculoskeletal)? @ -[Differential Abdominal Pain Men: Appendicitis, cholecystitis, diverticulosis, ischemic bowel, pancreatitis, hepatitis, UTI, gastroenteritis, AAA, incarcerated hernia, bowel obstruction, constipation, inflammatory bowel, hepatitis, peptic ulcer disease, splenic infarction, perforated viscus, testicular torsion, this is not meant to be an all-inclusive list EKG interpreted by me (3pts min.). @ -[As above] X-rays interpreted by me (1pt min.). @ -[None done] CT interpreted by me (1pt min.). @ -[As above U/S interpreted by me (1pt. min.). @ -[None done] What testing was considered but not performed or refused? (CT, X-rays, U/S, labs)? Why? @ -[None] What meds were considered but not given or refused? Why? @ -[None] Did you discuss the management of the patient with other professionals (dasha platt i.e. , PA, LEVEL VIAL CURVATURE GAUGER, lab, RT, psych nurse, licensed clinical social worker, accountant controller, teacher, jailer/training officer, medical case manager)? Give summary @ -[No] Was smoking cessation discussed for >3mins.? @ -[No] Was critical care preformed (if so, how long)? @ -[No] Were there social determinants of health that impacted care today? How? (Homelessness, low income, unemployed, alcoholism, drug addiction, transport ation, low edu. Level, literacy, decrease access to med. care, nursing home, rehab)? @ -[No] Was there de-escalation of care discussed even if they declined (Discuss DNR or withdrawal of care, Hospice)? DNR status @ -[No] What co-morbidities impacted this encounter? (DM, HTN, Smoking, COPD, CAD, Cancer, CVA, ARF, Chemo, Hep., AIDS, mental health diagnosis, sleep apnea, morbid obesity)? @ -[None] Was patient admitted / discharged? Hospital course, mention meds given and route, prescriptions, significant lab abnormalities, going to OR and other pertinent info. @ -[Patient is 62-year-old man presenting evaluation of left flank pain. The history and physical strongly suggestive of kidney stone. The computed tomography scan does confirm presence of stone. The patient did have good relief of symptoms with medications and appears good candidate for outpatient treatment. We discussed the appropriate follow-up as well as return parameters. Undiagnosed new problem with uncertain prognosis? @ -[No] Drug Therapy requiring intensive monitoring for toxicity (Heparin, Nitro, Insulin, Cardizem)? @ -[No] Were any procedures done? @ -[No] Diagnosis/symptom? @ -[Acute left kidney stone Acute, or Chronic, or Acute on Chronic? @ -[default] Uncomplicated (without systemic symptoms) or Complicated (systemic symptoms)? @ -[Uncomplicated Side effects of treatment? @ -[No] Exacerbation, Progression, or Severe Exacerbation? @ -[No] Poses a threat to life or bodily function? How? (Chest pain, [place], [place], pneumonia, PE, COPD, DKA, ARF, appy, cholecystitis, CVA, Diverticulitis, Homicidal, Suicidal, threat to staff... and all critical care pts) @ -[No] - Lab Data Result diagrams: 08/06/23 04:59 08/06/23 04:59 Lab Results 08/06/23 08/06/23 08/06/23 Range/Units 04:59 04:59 04:59 WBC 5.3 (3.8-10.6) k/uL RBC 5.32 (4.30-5.90) m/uL Hgb 15.1 (13.0-17.5) gm/dL Hct 43.4 (39.0-53.0) % MCV 81.6 (80.0-100.0) fL MCH 28.3 (25.0-35.0) pg MCHC 34.7 (31.0-37.0) g/dL RDW 12.5 (11.5-15.5) % Plt Count 197 (150-450) k/uL MPV 7.5 Neutrophils % 43 % Lymphocytes % 41 % Monocytes % 8 % Eosinophils % 6 % Basophils % 0 % Neutrophils # 2.3 (1.3-7.7) k/uL Lymphocytes # 2.2 (1.0-4.8) k/uL Monocytes # 0.4 (0-1.0) k/uL Eosinophils # 0.3 (0-0.7) k/uL Basophils # 0.0 (0-0.2) k/uL Sodium 137 (137-145) mmol/L Potassium 4.1 (3.5-5.1) mmol/L Chloride 105 (98-107) mmol/L Carbon Dioxide 20 L (22-30) mmol/L Anion Gap 12 mmol/L BUN 15 (9-20) mg/dL Creatinine 1.15 (0.66-1.25) mg/dL Est GFR (CKD-EPI)AfAm 78 (>60 ml/min/1.73 sqM) Est GFR (CKD-EPI)NonAf 68 (>60 ml/min/1.73 sqM) Glucose 97 (74-99) mg/dL Plasma Lactic Acid [place] 0.9 (0.7-2.0) mmol/L Calcium 9.3 (8.4-10.2) mg/dL Total Bilirubin 0.8 (0.2-1.3) mg/dL AST 32 (17-59) U/L ALT 21 (4-49) U/L Alkaline Phosphatase 43 (38-126) U/L C-Reactive Protein 0.6 (<1.0) mg/dL Total Protein 6.8 (6.3-8.2) g/dL Albumin 4.2 (3.5-5.0) g/dL Amylase 69 (30-110) U/L Lipase 113 (23-300) U/L Urine Color Urine Appearance (Clear) Urine pH (5.0-8.0) Ur Specific [place] (1.001-1.035) Urine Protein (Negative) Urine Glucose (UA) (Negative) Urine Ketones (Negative) Urine Blood (Negative) Urine Nitrite (Negative) Urine Bilirubin (Negative) Urine Urobilinogen (<2.0) mg/dL Ur Leukocyte Esterase (Negative) Urine RBC (0-5) /hpf Urine WBC (0-5) /hpf Ur Squamous Epith Cells (0-4) /hpf Urine Bacteria (None) /hpf Hyaline Casts (0-2) /lpf Urine Mucus (None) /hpf 08/06/23 Range/Units 07:00 WBC (3.8-10.6) k/uL RBC (4.30-5.90) m/uL Hgb (13.0-17.5) gm/dL Hct (39.0-53.0) % MCV (80.0-100.0) fL MCH (25.0-35.0) pg MCHC (31.0-37.0) g/dL RDW (11.5-15.5) % Plt Count (150-450) k/uL MPV Neutrophils % % Lymphocytes % % Monocytes % % Eosinophils % % Basophils % % Neutrophils # (1.3-7.7) k/uL Lymphocytes # (1.0-4.8) k/uL Monocytes # (0-1.0) k/uL Eosinophils # (0-0.7) k/uL Basophils # (0-0.2) k/uL Sodium (137-145) mmol/L Potassium (3.5-5.1) mmol/L Chloride (98-107) mmol/L Carbon Dioxide (22-30) mmol/L Anion Gap mmol/L BUN (9-20) mg/dL Creatinine (0.66-1.25) mg/dL Est GFR (CKD-EPI)AfAm (>60 ml/min/1.73 sqM) Est GFR (CKD-EPI)NonAf (>60 ml/min/1.73 sqM) Glucose (74-99) mg/dL Plasma Lactic Acid [place] (0.7-2.0) mmol/L Calcium (8.4-10.2) mg/dL Total Bilirubin (0.2-1.3) mg/dL AST (17-59) U/L ALT (4-49) U/L Alkaline Phosphatase (38-126) U/L C-Reactive Protein (<1.0) mg/dL Total Protein (6.3-8.2) g/dL Albumin (3.5-5.0) g/dL Amylase (30-110) U/L Lipase (23-300) U/L Urine Color Yellow Urine Appearance Clear (Clear) Urine pH 5.0 (5.0-8.0) Ur Specific [place] 1.022 (1.001-1.035) Urine Protein Trace H (Negative) Urine Glucose (UA) Negative (Negative) Urine Ketones Negative (Negative) Urine Blood Trace H (Negative) Urine Nitrite Negative (Negative) Urine Bilirubin Negative (Negative) Urine Urobilinogen <2.0 (<2.0) mg/dL Ur Leukocyte Esterase Negative (Negative) Urine RBC 8 H (0-5) /hpf Urine WBC 1 (0-5) /hpf Ur Squamous Epith Cells <1 (0-4) /hpf Urine Bacteria Rare H (None) /hpf Hyaline Casts 11 H (0-2) /lpf Urine Mucus Many H (None) /hpf Disposition Clinical Impression: Kidney stone on left side Disposition: HOME SELF-CARE Condition: Good Instructions (If sedation given, give patient instructions): Kidney Stones (ED) Prescriptions: Tamsulosin [Flomax] 0.4 mg PO DAILY #14 cap HYDROcodone/APAP 5-325MG [[place] 5-325] 1 tab PO Q4HR PRN 3 Days #18 tab PRN Reason: Pain Ondansetron Odt [Zofran ODT] 4 mg PO Q8HR PRN #10 tab PRN Reason: Nausea Is patient prescribed a controlled substance at d/c from ED?: Yes Referrals: Michael Bar MD [Primary Care Provider] - 1-2 days Ole Araya MD [STAFF PHYSICIAN] - 1-2 days
[2023-08-06] MEDS ORDERED: TAMSULOSIN 0.4 MG CAP.ER.24H PO STA (06:08)
[2023-08-06] MEDS ORDERED: HYDROmorphone 0.5 MG/0.5 ML SYRINGE IVP STA (07:29)
--- NOTE | 2023-08-06 08:04 | CT ---
EXAM: CT Abdomen and Pelvis Without Intravenous Contrast CLINICAL HISTORY: ITS.REASON CT Reason: left flank pain TECHNIQUE: Axial computed tomography images of the abdomen and pelvis without intravenous contrast. CTDI is 18.1 mGy and DLP is 1175 mGy-cm. This CT exam was performed using one or more of the following dose reduction techniques: automated exposure control, adjustment of the mA and/or kV according to patient size, and/or use of iterative reconstruction technique. COMPARISON: CT abdomen pelvis performed 08/19/2017 FINDINGS: Evaluation of the solid and hollow viscera limited due to lack of oral and IV contrast. Within this constraint: Lung bases: Unremarkable. No mass. No consolidation. ABDOMEN: Liver: Grossly Unremarkable. Gallbladder and bile ducts: Gallbladder mildly distended. No stones. No ductal dilation. Pancreas: Grossly Unremarkable. No ductal dilation. Spleen: Unremarkable. No splenomegaly. Adrenals: Unremarkable. No mass. Kidneys and ureters: Punctate, 2 mm left UVJ stone with mild proximal hydroureteronephrosis. Approximately 1.5 cm complex cyst versus mass in the mid pole the right kidney. Stomach and bowel: Diverticulosis without evidence of diverticulitis. No obstruction. PELVIS: Appendix: No findings to suggest acute appendicitis. Bladder: Unremarkable. No stones. Reproductive: Unremarkable as visualized. ABDOMEN and PELVIS: Intraperitoneal space: No free air. No significant fluid collection. Bones/joints: Mild lumbar spondylosis. No acute fracture. No dislocation. Soft tissues: Approximately 3.5 cm fat-containing umbilical hernia. Vasculature: Mild atherosclerosis. No abdominal aortic aneurysm. Lymph nodes: No enlarged lymph nodes. IMPRESSION: Evaluation of the solid and hollow viscera limited due to lack of oral and IV contrast. Within this constraint: Punctate, 2 mm left UVJ stone with mild proximal hydroureteronephrosis. Approximately 1.5 cm complex cyst versus mass in the mid pole the right kidney. Further evaluation with CT without/with IV contrast or abdominal MRI recommended. Approximately 3.5 cm fat-containing umbilical hernia.
[2023-08-06 08:35] LABS: Appearance,Urine Clear (Clear); Bacteria,Urine Rare /hpf; Bilirubin,Urine Negative (Negative); Blood,Urine Trace (Negative); Color,Urine Yellow; Glucose,Urine (UA) Negative (Negative); Hyaline Casts,Urine 11 /lpf (0-2); Ketones,Urine Negative (Negative); Leukocyte Esterase,Urine Negative (Negative); Mucus,Urine Many /hpf; Nitrite,Urine Negative (Negative); Protein,Urine Trace (Negative); RBC,Urine 8 /hpf (0-5); Specific Gravity,Urine 1.022 (1.001-1.035); Squamous Epithelial Cell,Urine <1 /hpf (0-4); Urobilinogen,Urine <2.0 mg/dL (<2.0); WBC,Urine 1 /hpf (0-5)
[2023-08-06 09:23] VITALS: BP 123/74; PULSE 58; RESP 16
== END 2023-08-06 09:51 | disposition home or self-care (01) ==
LOC: EC 04:13
DX: N13.2 Hydronephrosis with renal and ureteral calculous obstruction (principal); I48.91 Unspecified atrial fibrillation; Z79.01 Long term (current) use of anticoagulants
CPT/HCPCS: 99284 ×2; 96374 ×2; 96375 ×2; 96376 ×2; 36415; 80053; 82150; 83605; 83690; 85025; 86140; 81001; 74176; J1170 ×2; J1885

== ENCOUNTER → 2023-08-12 | Outpatient (CLI) | payer MEDICAID ==
[2023-08-12 16:13] LABS: Blood Urea Nitrogen 18.9 mg/dL (9.0-27.0); Calcium 9.9 mg/dL (8.7-10.3); Carbon Dioxide 25.6 mmol/L (21.6-31.8); Chloride 104 mmol/L (96-109); Glucose 97 mg/dL (70-110); Potassium 4.6 mmol/L (3.5-5.5); Sodium 141 mmol/L (135-145)
[2023-08-12 16:14] LABS: Magnesium 1.8 mg/dL (1.5-2.4)
== END | disposition home or self-care (01) ==
LOC: LABWHC1 12:24
PROVIDERS: ATTEND Internal Medicine Clinical Cardiac Electrophysiology
DX: Z51.81 Encounter for therapeutic drug level monitoring (principal); I48.91 Unspecified atrial fibrillation; M19.90 Unspecified osteoarthritis, unspecified site
CPT/HCPCS: 36415; 80048; 83735

== ENCOUNTER → 2024-03-10 | Outpatient (CLI) | payer MEDICAID | END | disposition home or self-care (01) | LOC: LABPRL 09:32 | PROVIDERS: ATTEND Internal Medicine Geriatric Medicine | CPT/HCPCS: 80053; 80061; 82043; 82570; 83735; 84443; 84550; 85025 ==

== ENCOUNTER 2024-07-09 05:42 | Day surgery (SDC) | payer MEDICAID ==
[2024-07-07 14:20] VITALS: BMI 33.5
[2024-07-09 06:22] VITALS: TEMP 98.5
[2024-07-09] MEDS: SODIUM CHLORIDE 0.9% 1,000 ML IV SCH (06:22)
[2024-07-09] MEDS: IV FLUID CONTINUATION 1,000 ML IV ONE (06:23)
[2024-07-09 06:54] LABS: African American GFR (CKD) 79 (>60 ml/min/1.73 sqM); Anion Gap 4 mmol/L; Blood Urea Nitrogen 25 mg/dL (9-20); Calcium 9.1 mg/dL (8.4-10.2); Carbon Dioxide 26 mmol/L (22-30); Chloride 110 mmol/L (98-107); Glucose 103 mg/dL (74-99); Non-African American GFR(CKD) 69 (>60 ml/min/1.73 sqM); Sodium 140 mmol/L (137-145)
[2024-07-09] MEDS ORDERED: PROPOFOL 10 MG/ML 20 ML VIAL IV ONE (07:35)
[2024-07-09 09:41] VITALS: PULSE 54
[2024-07-09 10:05] VITALS: BP 138/84; RESP 17
--- NOTE | 2024-07-09 10:43 | P.EPPROC ---
- EP Procedure Note Electrophysiology Procedure Note: This is Dr. Earl dictating an H/P on this patient The patient was interviewed and examined IMPRESSION / ASSESSMENT: Persistent atrial fibrillation, recurrent despite dofetilide and successful A- fib ablation in 2020 with PVI, left atrial roof, left atrial septal ablation and ablation of focal tachycardia at the base of the SVC CHADVASC score 0 Symptoms of shortness of breath and palpitations during atrial fibrillation despite rate control PLAN: Short-term anticoagulation Proceed with electrical cardioversion today Continue dofetilide HPI Patient went back into atrial fibrillation about 3 to 4 weeks back and has not spontaneously converted back to sinus rhythm. He is symptomatic with shortness of breath and palpitations. He continues to take dofetilide and has been on Eliquis for almost a month now No fever chills cough expectoration He exercises regularly at least 5 days a week for about 45 minutes at a time moderate level exertion He does have obesity with a BMI of 35 He denies any significant alcohol use. He drinks maybe once or twice a month Denies any smoking or marijuana use ROS: No fever chills or rigors, no cough, phlegm or expectoration, no nausea, vomiting or diarrhea, no hematuria, dysuria, no musculoskeletal complaints, no strokes or seizures, no skin lesions. EXAMINATION: Pulse rate in the 50s blood pressure 117/76 mmHg afebrile Rhythm is irregular Lungs are clear No JVD No lower extremity edema REVIEW OF LABS, ECG & MEDICAL DATA Sodium 140, potassium 4.0, BUN 25 and creatinine 1.13 GFR 70 Medications include Eliquis 5 mg twice daily, dofetilide 500 mcg twice daily and magnesium
--- NOTE | 2024-07-09 10:45 | P.EPPROC ---
- EP Procedure Note Electrophysiology Procedure Note: Diagnosis Persistent atrial fibrillation despite dofetilide and successful A-fib ablation in 2020, with PVI left atrial roof ablation, left atrial septal ablation and ablation of a focal tachycardia in the base of the SVC Failed Multaq, failed flecainide Procedure Using a 200 J biphasic shock in the AP configuration, successful cardioversion to sinus rhythm In sinus rhythm twelve-lead EKG shows normal TX interval absolute QT interval of a little over 440 ms with a heart rate of 51 beats a minute Plan Continue Eliquis Consider A-fib ablation once again. This was discussed in detail with the patient and his The plan during A-fib ablation would be to map the pulmonary veins left atrial roof and left atrial septum to ensure durability of prior ablation lesions Likely atrial flutter ablation and ablation of the left atrial ridge EP study to induce any atrial tachycardia on and off Isopril
--- NOTE | 2024-07-09 10:49 | P.HPCAR ---
History of Present Illness This is Dr. Earl dictating an H/P on this patient The patient was interviewed and examined IMPRESSION / ASSESSMENT: Persistent atrial fibrillation, recurrent despite dofetilide and successful A- fib ablation in 2020 with PVI, left atrial roof, left atrial septal ablation and ablation of focal tachycardia at the base of the SVC CHADVASC score 0 Symptoms of shortness of breath and palpitations during atrial fibrillation despite rate control PLAN: Short-term anticoagulation Proceed with electrical cardioversion today Continue dofetilide HPI Patient went back into atrial fibrillation about 3 to 4 weeks back and has not spontaneously converted back to sinus rhythm. He is symptomatic with shortness of breath and palpitations. He continues to take dofetilide and has been on Eliquis for almost a month now No fever chills cough expectoration He exercises regularly at least 5 days a week for about 45 minutes at a time moderate level exertion He does have obesity with a BMI of 35 He denies any significant alcohol use. He drinks maybe once or twice a month Denies any smoking or marijuana use ROS: No fever chills or rigors, no cough, phlegm or expectoration, no nausea, vomiting or diarrhea, no hematuria, dysuria, no musculoskeletal complaints, no strokes or seizures, no skin lesions. EXAMINATION: Pulse rate in the 50s blood pressure 117/76 mmHg afebrile Rhythm is irregular Lungs are clear No JVD No lower extremity edema REVIEW OF LABS, ECG & MEDICAL DATA Sodium 140, potassium 4.0, BUN 25 and creatinine 1.13 GFR 70 Medications include Eliquis 5 mg twice daily, dofetilide 500 mcg twice daily and magnesium Physical Exam Vitals: Vital Signs Temp Pulse Resp BP BP Pulse Ox 07/09/24 10:04 54 L 17 138/84 98 07/09/24 09:35 54 L 16 128/82 98 07/09/24 09:20 56 L 18 125/79 99 07/09/24 09:04 58 L 17 139/85 99 07/09/24 08:45 52 L 16 117/76 95 07/09/24 08:30 51 L 16 115/79 98 07/09/24 08:15 51 L 16 123/79 98 07/09/24 08:00 52 L 16 113/72 97 07/09/24 07:58 76 16 110/72 94 L 07/09/24 07:20 89 16 124/80 95 07/09/24 06:21 98.5 F 100 18 128/94 98 Intake and Output 07/08/24 07/09/24 07/09/24 22:59 06:59 14:59 Intake Total 20 900 Balance 20 900 Intake: IV 20 900 Other: Weight 115.3 kg Past Medical History Past Medical History: Atrial Fibrillation, Cancer Additional Past Medical History / Comment(s): HX BASAL CELL SKIN CA, KIDNEY STONES History of Any Multi-Drug Resistant Organisms: None Reported Past Surgical History: Cardiac Ablation Additional Past Surgical History / Comment(s): Cardioversion X3, surgery as a baby for fontanel closing too soon, basal cell skin lesions removed several times,ESTEFANIA,septoplasty. BILAT EYELID LIFT Past Anesthesia/Blood Transfusion Reactions: No Reported Reaction Smoking Status: Never smoker - Past Family History Mother Family Medical History: No Reported History Physical Examination Vital Signs Temp Pulse Resp BP BP Pulse Ox 07/09/24 10:04 54 L 17 138/84 98 07/09/24 09:35 54 L 16 128/82 98 07/09/24 09:20 56 L 18 125/79 99 07/09/24 09:04 58 L 17 139/85 99 07/09/24 08:45 52 L 16 117/76 95 07/09/24 08:30 51 L 16 115/79 98 07/09/24 08:15 51 L 16 123/79 98 07/09/24 08:00 52 L 16 113/72 97 07/09/24 07:58 76 16 110/72 94 L 07/09/24 07:20 89 16 124/80 95 07/09/24 06:21 98.5 F 100 18 128/94 98 Intake and Output 07/08/24 07/09/24 07/09/24 22:59 06:59 14:59 Intake Total 20 900 Balance 20 900 Intake: IV 20 900 Other: Weight 115.3 kg Results 07/09/24 06:20 Comprehensive Metabolic Panel 07/09/24 Range/Units 06:20 Sodium 140 (137-145) mmol/L Potassium 4.0 (3.5-5.1) mmol/L Chloride 110 H (98-107) mmol/L Carbon Dioxide 26 (22-30) mmol/L BUN 25 H (9-20) mg/dL Creatinine 1.13 (0.66-1.25) mg/dL Glucose 103 H (74-99) mg/dL Calcium 9.1 (8.4-10.2) mg/dL Intake and Output 07/08/24 07/09/24 07/09/24 22:59 06:59 14:59 Intake Total 20 900 Balance 20 900 Intake: IV 20 900 Other: Weight 115.3 kg 07/09/24 06:20
== END 2024-07-09 10:35 | disposition home or self-care (01) ==
LOC: CATHEP 05:42
PROVIDERS: ATTEND Internal Medicine Clinical Cardiac Electrophysiology
DX: I48.19 Other persistent atrial fibrillation (principal); E66.9 Obesity, unspecified; E78.5 Hyperlipidemia, unspecified; Z68.35 Body mass index [BMI] 35.0-35.9, adult; Z85.828 Personal history of other malignant neoplasm of skin; Z87.442 Personal history of urinary calculi; Z79.01 Long term (current) use of anticoagulants; Z98.890 Other specified postprocedural states; Z79.899 Other long term (current) drug therapy
CPT/HCPCS: 92960; 80048; J2704

== ENCOUNTER → 2024-08-04 | Outpatient (CLI) | payer MEDICAID ==
--- NOTE | 2024-08-04 10:39 | CA ---
Transthoracic Echo Report Name: Lan Handy Age: 63 Gender: M : 1960 Exam Date: 08/04/2024 08:38 Exam Location: [facility] Ht (in): 72 Wt (lb): 250 Ordering Physician: Gigi Earl MD ([id number]) Attending/Referring Phys: Scrap Charger [place] aMy RDCS Procedure CPT: Indications: I48.19 a fib Cardiac Hx: Hx of A- fib Technical Quality: Good Contrast 1: Total Dose (mL): Contrast 2: Total Dose (mL): MEASUREMENTS (Male / Female) Normal Values 2D ECHO LV Diastolic Diameter PLAX 5.5 cm 4.2 - 5.9 / 3.9 - 5.3 cm LV Systolic Diameter PLAX 3.8 cm IVS Diastolic Thickness 1.1 cm 0.6 - 1.0 / 0.6 - 0.9 cm LVPW Diastolic Thickness 1.2 cm 0.6 - 1.0 / 0.6 - 0.9 cm LV Relative Wall Thickness 0.4 RV Internal Dim ED PLAX 3.5 cm LA Systolic Diameter LX 4.0 cm 3.0 - 4.0 / 2.7 - 3.8 cm LV Diastolic Volume MOD 4C 118.9 cm??? LV Systolic Volume MOD 4C 54.2 cm??? LV Ejection Fraction MOD 4C 54.5 % LV Cardiac Index MOD 4C 1409.4 cm???/min???m??? LV Diastolic Length 4C 9.0 cm LV Systolic Length 4C 7.3 cm LV Diastolic Volume MOD 2C 117.8 cm??? LV Systolic Volume MOD 2C 54.3 cm??? LV Ejection Fraction MOD 2C 53.9 % LV Cardiac Index MOD 2C 1382.3 cm???/min???m??? LV Diastolic Length 2C 9.6 cm LV Systolic Length 2C 8.0 cm LA Volume 105.7 cm??? 18 - 58 / 22 - 52 cm??? LA Volume Index 43.4 cm???/m??? 16 - 28 cm???/m??? M-MODE Aortic Root Diameter MM 3.9 cm LA Systolic Diameter MM 4.0 cm LA Ao Ratio MM 1.0 DOPPLER AV Peak Velocity 138.7 cm/s AV Peak Gradient 7.7 mmHg MV Area PHT 3.2 cm??? Mitral E Point Velocity 95.0 cm/s Mitral A Point Velocity 51.3 cm/s Mitral E to A Ratio 1.9 MV Deceleration Time 240.1 ms TR Peak Velocity 265.1 cm/s TR Peak Gradient 28.1 mmHg Right Ventricular Systolic Press 32.7 mmHg FINDINGS Left Ventricle Left ventricular ejection fraction is estimated at 50-55 %. Left ventricular cavity size normal. Left ventricular wall thickness normal. Normal left ventricular wall motion. Right Ventricle Mild right ventricular dilatation. Right ventricular systolic pressure within normal limits. Right Atrium Normal right atrial size. No right atrial thrombus or mass seen. Left Atrium Moderate LA dilatation Mitral Valve Structurally normal mitral valve. Trace mitral regurgitation. Aortic Valve Trileaflet aortic valve. No aortic valve stenosis or regurgitation. Tricuspid Valve Structurally normal tricuspid valve. Trace to mild tricuspid regurgitation. Pulmonic Valve Structurally normal pulmonic valve. No pulmonic regurgitation. Pericardium No pericardial or pleural effusion. Aorta Mild aortic dilatation at the level of the sinuses of valsalva 39 mm CONCLUSIONS LVEF 55% No obvious regional wall motion abnormality Mild RV dilatation. Moderate LA dilatation Trace MR and TR Mildly dilated aortic root at 3.9 cm Previewed by: Dr Matias Alston (Electronically Signed) Final Date: 04 August 2024 10:38
== END | disposition home or self-care (01) ==
LOC: RADECHMAIN 08:19
PROVIDERS: ATTEND Internal Medicine Clinical Cardiac Electrophysiology
DX: I48.19 Other persistent atrial fibrillation (principal); I34.0 Nonrheumatic mitral (valve) insufficiency; I07.1 Rheumatic tricuspid insufficiency
CPT/HCPCS: 93306

== ENCOUNTER → 2024-11-27 | Outpatient (CLI) | payer MEDICAID ==
[2024-11-27 14:53] LABS: INR 0.9 (<1.2); Prothrombin Time 10.6 sec (10.0-12.5)
[2024-11-27 18:16] LABS: Basophils # (A) 0.03 X 10*3/uL (0.00-0.10); Basophils % (A) 0.5 %; Eosinophils # (A) 0.12 X 10*3/uL (0.04-0.35); Eosinophils % (A) 1.9 %; HCT 41.5 % (39.6-50.0); HGB 13.6 g/dL (13.0-17.0); Lymphocytes # (A) 1.88 X 10*3/uL (0.90-5.00); Lymphocytes % (A) 30.2 %; MCH 27.4 pg (27.0-32.0); MCHC 32.8 g/dL (32.0-37.0); MCV 83.5 FL (80.0-97.0); Mean Platelet Volume 9.9 FL (9.5-12.2); Monocytes # (A) 0.58 X 10*3/uL (0.20-1.00); Monocytes % (A) 9.3 %; NRBC Per 100 WBC 0 X 10*3/uL (0.00-0.01); Neutrophils % (A) 57.9 %; Platelet Count 216 X 10*3/uL (140-440); RBC 4.97 X 10*6/uL (4.40-5.60); RDW 13.1 % (11.5-14.5); WBC 6.22 X 10*3/uL (4.50-10.00)
[2024-11-27 18:29] LABS: ALT 23 U/L (10-49); AST 24 U/L (14-35); Albumin 4.1 g/dL (3.8-4.9); Albumin/Globulin Ratio 1.95 Ratio (1.60-3.17); Alkaline Phosphatase 36 U/L (41-126); BUN/Creat Ratio 16.33 Ratio (12.00-20.00); Blood Urea Nitrogen 19.6 mg/dL (9.0-27.0); Calcium 9.5 mg/dL (8.7-10.3); Carbon Dioxide 24.5 mmol/L (21.6-31.8); Chloride 108 mmol/L (96-109); Globulin 2.1 g/dL (1.6-3.3); Glucose 94 mg/dL (70-110); Potassium 4.5 mmol/L (3.5-5.5); Sodium 143 mmol/L (135-145); Total Bilirubin 0.5 mg/dL (0.3-1.2); Total Protein 6.2 g/dL (6.2-8.2)
== END | disposition home or self-care (01) ==
LOC: LABWHC1 13:32
PROVIDERS: ATTEND Nurse Practitioner Family
DX: Z01.812 Encounter for preprocedural laboratory examination (principal)
CPT/HCPCS: 36415; 80053; 85025; 85610; 87070